=== PATIENT | male | born 1965 | race Caucasian/White ===

== ENCOUNTER → 2017-12-16 07:45 | Outpatient (CLI) | payer BC, SELFPAY ==
[2017-12-16 08:59] LABS: Alanine Aminotransferase 29 U/L (12-78); Albumin Level 3.8 gm/dL (3.4-5.0); Albumin/Globulin Ratio 1.2 (1.1-1.8); Alkaline Phosphatase 89 U/L (46-116); Anion Gap 10.9 mEq/L (5-15); Aspartate Amino Transferase 13 U/L (15-37); Bilirubin,Total 0.2 mg/dL (0.2-1.0); Blood Urea Nitrogen 8 mg/dL (7-18); Calcium 8.7 mg/dL (8.5-10.1); Carbon Dioxide 30 mmol/L (21.0-32.0); Chloride 102 mmol/L (98-107); Chol/HDL Ratio 4.1 (1-3.5); Cholesterol 127 mg/dL (140-200); Creatinine,Serum 1.02 mg/dL (0.70-1.30); Estimated Glomerular Filt Rate 76 ml/min (>60); GFR (African American) 92 ML/MIN (>60); Globulin 3.1 gm/dl (1.3-3.2); Glucose 124 mg/dL (74-106); HDL Cholesterol 31 mg/dL (27-67); LDL Cholesterol 73 mg/dL (0-130); Potassium 3.9 mmoL/L (3.5-5.1); Sodium 139 mmol/L (136-145); Thyroid Stimulating Hormone 4.73 uIU/ml (0.358-3.740); Total Protein,Serum 6.9 gm/dL (6.4-8.2); Triglycerides 114 mg/dL (30-200); VLDL Cholesterol 23 mg/dL (0-40)
== END ==
PROVIDERS: Visit Provider Nurse Practitioner Family
DX: I10 Essential (primary) hypertension (principal); E78.5 Hyperlipidemia, unspecified; E03.9 Hypothyroidism, unspecified
CPT/HCPCS: 36415; 80053; 80061; 84443

== ENCOUNTER → 2019-04-06 09:49 | Outpatient (CLI) | payer BC, SELFPAY ==
[2019-04-06 11:59] LABS: Alanine Aminotransferase 27 U/L (12-78); Albumin Level 3.8 gm/dL (3.4-5.0); Albumin/Globulin Ratio 1.2 (1.1-1.8); Alkaline Phosphatase 94 U/L (46-116); Anion Gap 11.9 mEq/L (5-15); Aspartate Amino Transferase 16 U/L (15-37); Bilirubin,Total 0.5 mg/dL (0.2-1.0); Blood Urea Nitrogen 13 mg/dL (7-18); Calcium 8.7 mg/dL (8.5-10.1); Carbon Dioxide 29 mmol/L (21.0-32.0); Chloride 99 mmol/L (98-107); Chol/HDL Ratio 3.2 (1-3.5); Cholesterol 108 mg/dL (140-200); Creatinine,Serum 1.02 mg/dL (0.70-1.30); Estimated Glomerular Filt Rate 76 ml/min (>60); GFR (African American) 92 ML/MIN (>60); Globulin 3.1 gm/dl (1.3-3.2); Glucose 87 mg/dL (74-106); HDL Cholesterol 34 mg/dL (27-67); LDL Cholesterol 61 mg/dL (0-130); Potassium 3.9 mmoL/L (3.5-5.1); Sodium 136 mmol/L (136-145); Thyroid Stimulating Hormone 1.13 uIU/ml (0.358-3.740); Total Protein,Serum 6.9 gm/dL (6.4-8.2); Triglycerides 67 mg/dL (30-200); VLDL Cholesterol 13 mg/dL (0-40)
[2019-04-06 12:36] LABS: Hemoglobin A1C 5.9 % (0.0-7.0)
== END ==
PROVIDERS: Visit Provider Nurse Practitioner Family
DX: E78.5 Hyperlipidemia, unspecified (principal); E03.9 Hypothyroidism, unspecified; R73.09 Other abnormal glucose; I10 Essential (primary) hypertension
CPT/HCPCS: 36415; 80053; 80061; 83036; 84443

== ENCOUNTER → 2019-09-21 10:17 | Outpatient (CLI) | payer BC, SELFPAY ==
[2019-09-21 10:53] LABS: Hemoglobin A1C 5.4 % (4.0-6.0)
[2019-09-21 11:25] LABS: Alanine Aminotransferase 24 U/L (12-78); Albumin/Globulin Ratio 1.9 (1.1-1.8); Alkaline Phosphatase 56 U/L (38-126); Anion Gap 10.5 mEq/L (5-15); Aspartate Amino Transferase 28 U/L (17-59); Bilirubin,Total 0.7 mg/dl (0.2-1.3); Blood Urea Nitrogen 13 mg/dl (9-20); Calcium 9.6 mg/dl (8.4-10.2); Carbon Dioxide 30 mmol/L (22.0-30.0); Chloride 100 mmol/L (98-107); Chol/HDL Ratio 2.4 (1-3.5); Cholesterol 116 mg/dl (140-200); Estimated Glomerular Filt Rate 100 ml/min (>60); GFR (African American) 121 ML/MIN (>60); Globulin 2.6 g/dL (1.3-3.2); Glucose 94 mg/dl (74-100); HDL Cholesterol 48 mg/dl (40-60); Potassium 4.5 mmoL/L (3.5-5.1); Sodium 136 mmol/L (136-145); Total Protein,Serum 7.6 g/dl (6.3-8.2); Triglycerides 63 mg/dl (30-150); VLDL Cholesterol 13 mg/dL (0-40)
[2019-09-21 11:36] LABS: Direct LDL Cholesterol 71.16 mg/dL (100-129)
[2019-09-21 11:56] LABS: Thyroid Stimulating Hormone 0.75 uIU/mL (0.465-4.68)
== END ==
PROVIDERS: Visit Provider Nurse Practitioner Family
DX: R73.09 Other abnormal glucose (principal); E78.5 Hyperlipidemia, unspecified; I10 Essential (primary) hypertension; E03.9 Hypothyroidism, unspecified
CPT/HCPCS: 36415; 80053; 80061; 83036; 84443

== ENCOUNTER → 2020-02-22 11:32 | Outpatient (CLI) | payer BC, SELFPAY ==
[2020-02-22 12:03] LABS: Basophils # 0.1 K/mm3 (0-0.2); Basophils % 1.4 % (0.1-2.0); Eosinophils # 0.2 K/mm3 (0.0-0.4); Eosinophils % 3.3 % (0.1-12.0); Hematocrit 48.8 % (42.0-52.0); Hemoglobin 16.2 g/dL (14.1-18.0); Lymphocytes # 2.6 K/mm3 (0.7-4.5); Lymphocytes % 34.9 % (10-50); Mean Corpuscular HGB Conc 33.2 g/dL (31.8-35.4); Mean Corpuscular Hemoglobin 34.1 pg (27.0-31.2); Mean Corpuscular Volume 102.6 fl (80-94); Mean Platelet Volume 8.3 fl (7.4-10.4); Monocytes # 0.4 K/mm3 (0.1-1.0); Monocytes % 5.9 % (1.7-9.3); Neutrophils % 54.6 % (37.0-80.0); Platelet Count 245 K/mm3 (142-424); Red Blood Count 4.76 M/mm3 (4.60-6.20); Red Cell Distribution Width 12.7 % (11.5-17.5); White Blood Count 7.4 K/mm3 (4.8-10.8)
[2020-02-22 12:38] LABS: Alanine Aminotransferase 25 U/L (12-78); Albumin Level 4.5 g/dl (3.5-5.0); Albumin/Globulin Ratio 1.7 (1.1-1.8); Alkaline Phosphatase 59 U/L (38-126); Anion Gap 12.4 mEq/L (5-15); Aspartate Amino Transferase 27 U/L (17-59); Bilirubin,Total 0.5 mg/dl (0.2-1.3); Blood Urea Nitrogen 12 mg/dl (9-20); Calcium 9.2 mg/dl (8.4-10.2); Carbon Dioxide 30 mmol/L (22.0-30.0); Chloride 102 mmol/L (98-107); Chol/HDL Ratio 2.7 (1-3.5); Cholesterol 110 mg/dl (140-200); Estimated Glomerular Filt Rate 87 ml/min (>60); GFR (African American) 106 ML/MIN (>60); Globulin 2.6 g/dL (1.3-3.2); Glucose 91 mg/dl (74-100); HDL Cholesterol 41 mg/dl (40-60); Potassium 4.4 mmoL/L (3.5-5.1); Sodium 140 mmol/L (136-145); Total Protein,Serum 7.1 g/dl (6.3-8.2); Triglycerides 64 mg/dl (30-150); VLDL Cholesterol 13 mg/dL (0-40)
[2020-02-22 12:49] LABS: Direct LDL Cholesterol 62.31 mg/dL (100-129)
[2020-02-22 13:09] LABS: Thyroid Stimulating Hormone 0.79 uIU/mL (0.465-4.68)
== END ==
PROVIDERS: Visit Provider Nurse Practitioner Family
DX: I25.10 Atherosclerotic heart disease of native coronary artery without angina pectoris (principal); R73.09 Other abnormal glucose; E03.9 Hypothyroidism, unspecified; Z72.0 Tobacco use
CPT/HCPCS: 36415; 80053; 80061; 83036; 84443; 85025

== ENCOUNTER → 2020-03-08 07:46 | Outpatient (CLI) | payer BC, SELFPAY ==
--- NOTE | 2020-03-08 07:50 | CT_ITS ---
PROCEDURE: CT LUNG SCREENING CLINICAL INDICATION: H/O NICOTINE DEPENDENCE Current smoker 40 pack year smoking history COMPARISON: No exams were available for comparison TECHNIQUE: The exam was performed on a GE Light Speed [address] scanner using 2.90 mGy CTDI. A low dose helical CT CHEST was performed on a multi-detector scanner. All CT scans at the facility use one or more dose reduction, viz: automated exposure control, ma/kV adjustment per patient size (including targeted exams where dose is matched to indication, i.e. head), or iterative reconstruction technique. The LDCT was performed in a facility that meets the criteria for the screening program. Data regarding this exam was submitted to ACR which is an approved registry. The order for this exam indicates that it came as a result of a lung cancer screening counseling shard decision-making visit that included all the elements required of such a visit including smoking cessation. The radiologist interpreting this exam meets the [facility] criteria for the LDCT lung cancer screening program. The exam is reported using the Lung-RADS classification scale and reported to the ACR registry. NOTE: This study was performed for the specific purposes of lung cancer screening and is not an alternative to diagnostic chest CT. RADIATION DOSE: CTDI vol(CT dose Index-volume) = 2.90mG DLP (Dose Length Product) = 98.99 mGcm FINDINGS: Changes of COPD atelectatic or scarring noted in the right lower lobe. 7 mm nodule is present in the right lung base image 46 series 4. 7 mm ground-glass nodule is present in the left lung base. OTHER FINDINGS: Prior CABG. Extensive coronary artery calcification degenerative changes thoracic spine IMPRESSION: Lung-RADS Category 3 Probably Benign Follow-up: [address] Chest without and with contrast. Dictated by: Oc Macedo MD 03/13/2020 08:58 Oc Macedo MD in [place] 03/13/2020 08:58
== END ==
PROVIDERS: PCP Internal Medicine Adolescent Medicine; Visit Provider Nurse Practitioner Family
DX: Z87.891 Personal history of nicotine dependence (principal); Z12.2 Encounter for screening for malignant neoplasm of respiratory organs

== ENCOUNTER → 2021-03-23 11:14 | Outpatient (CLI) | payer BC, SELFPAY ==
[2021-03-23 12:25] LABS: Alanine Aminotransferase 31 U/L (12-78); Albumin Level 4.5 g/dl (3.5-5.0); Albumin/Globulin Ratio 1.8 (1.1-1.8); Alkaline Phosphatase 61 U/L (38-126); Anion Gap 12.4 mEq/L (5-15); Aspartate Amino Transferase 26 U/L (17-59); Bilirubin,Total 0.5 mg/dl (0.2-1.3); Blood Urea Nitrogen 15 mg/dl (9-20); Calcium 9.2 mg/dl (8.4-10.2); Carbon Dioxide 27 mmol/L (22.0-30.0); Chloride 102 mmol/L (98-107); Chol/HDL Ratio 3.4 (1-3.5); Cholesterol 124 mg/dl (140-200); Estimated Glomerular Filt Rate 87 ml/min (>60); GFR (African American) 105 ML/MIN (>60); Globulin 2.5 g/dL (1.3-3.2); Glucose 89 mg/dl (74-100); HDL Cholesterol 36 mg/dl (40-60); Potassium 4.4 mmoL/L (3.5-5.1); Sodium 137 mmol/L (136-145); Triglycerides 77 mg/dl (30-150); VLDL Cholesterol 15 mg/dL (0-40)
[2021-03-23 12:36] LABS: Direct LDL Cholesterol 75.44 mg/dL (100-129)
[2021-03-23 12:56] LABS: Thyroid Stimulating Hormone 5.57 uIU/mL (0.465-4.68)
== END ==
PROVIDERS: Visit Provider Nurse Practitioner Family
DX: I10 Essential (primary) hypertension (principal); E78.5 Hyperlipidemia, unspecified; E03.9 Hypothyroidism, unspecified; R73.03 Prediabetes
CPT/HCPCS: 36415; 80053; 80061; 83036; 84443

== ENCOUNTER → 2021-05-09 14:53 | Outpatient (CLI) | payer BC, SELFPAY ==
--- NOTE | 2021-05-09 14:55 | CT_ITS ---
PROCEDURE: CT LUNG SCREENING CLINICAL INDICATION: HX OF NICOTINE DEPENDENCE COMPARISON: CT CT LUNG SCREENING from 03/08/2020 TECHNIQUE: The exam was performed on a GE Light Speed [address] scanner using 2.90 mGy CTDI. A low dose helical CT CHEST was performed on a multi-detector scanner. All CT scans at the facility use one or more dose reduction, viz: automated exposure control, ma/kV adjustment per patient size (including targeted exams where dose is matched to indication, i.e. head), or iterative reconstruction technique. The LDCT was performed in a facility that meets the criteria for the screening program. Data regarding this exam was submitted to ACR which is an approved registry. The order for this exam indicates that it came as a result of a lung cancer screening counseling shard decision-making visit that included all the elements required of such a visit including smoking cessation. The radiologist interpreting this exam meets the CMS criteria for the LDCT lung cancer screening program. The exam is reported using the Lung-RADS classification scale and reported to the ACR registry. NOTE: This study was performed for the specific purposes of lung cancer screening and is not an alternative to diagnostic chest CT. RADIATION DOSE: CTDI vol(CT dose Index-volume) = 2.90mG DLP (Dose Length Product) = 90.12 mGcm FINDINGS: COPD changes. Scattered areas of scarring. Old granulomatous disease. Fissural nodule in the right lung base is unchanged at 8 mm. There is faint ground-glass attenuation in the lingula inferiorly. No change 7 mm ground-glass nodule left lung base. No suspicious nodules identified. Mild atelectatic change right posterior costophrenic sulcus OTHER FINDINGS: Prior CABG. Extensive coronary artery calcification. Degenerative changes thoracic spine with kyphosis IMPRESSION: Lung-RADS Category 2 Benign Appearance or Behavior Follow-up: Continue annual screening with LDCT in 12 months Faint infiltrate noted in the lingula Dictated by: Oc Macedo MD 05/12/2021 12:30 Oc Macedo MD in [place] 05/12/2021 12:30
== END ==
PROVIDERS: PCP Internal Medicine Adolescent Medicine; Visit Provider Nurse Practitioner Family
DX: Z87.891 Personal history of nicotine dependence (principal); Z12.2 Encounter for screening for malignant neoplasm of respiratory organs
CPT/HCPCS: 71271

== ENCOUNTER 2022-02-19 10:50 | Emergency (ER) | payer OTHER, BC, SELFPAY ==
[2022-02-19 10:52] VITALS: BP 158/83; PULSE 60; RESP 20; TEMP 36.6; O2SAT 98; BMI 35.2
--- NOTE | 2022-02-19 10:54 | HMH.EDGENADL ---
Discharge Plan Disposition Patient Disposition: Home, Self-Care Condition: Good Prescriptions Prescriptions: New ibuprofen 600 mg tablet 600 mg PO Q8H PRN (Reason: pain) Qty: 30 0RF hydrocodone-acetaminophen 5-325 mg tablet 1 tab PO Q6H PRN (Reason: pain (scale score 4-6)) Qty: 12 0RF Referrals Follow up/Referrals: Filemon Webster MD [Primary Care Provider] - See instructions Sunita Garces DPM [Staff Physician] - See instructions Activity Restrictions/Add. Instructions Additional Instructions/Restrictions: You have been evaluated for crush injury to the right foot and ankle. Please keep Serafin wrap in place. Keep your leg elevated. Take anti-inflammatory medication like 600 mg ibuprofen. [place] as needed for severe pain. 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 Return to the emergency department at once for any new or worsening symptoms. Clinical Impressions Clinical Impression: Crush injury of right foot Instructions Patient Instructions: DI for Ankle Sprain, DI for Contusion Discharge ED Provider: Noris Eduardo General Adult HPI General Chief complaint: Extremity Injury, Lower Stated complaint: Ran over by forklift, RT foot pain@work 02/16 1140 Time Seen by Provider: 02/19/22 10:54 History of Present Illness HPI narrative: 57-year-old male presenting to the emergency department with injury to the right foot. Incident happened on Saturday, 3 days ago. He was at work, wearing tennis shoes. His foot was run over by a forklift. He had immediate pain near the ankle. Described as sharp. He was evaluated at the hospital in [place] where he was told x-rays were negative. Was discharged home. He has not taken any medication for pain or inflammation. He is wearing a slipper. Does not have the foot or ankle wrapped. Says his pain is no better than it was the evening accident happened. No numbness, weakness, tingling in his toes. No pain in the [place] or knee. No breaks in the skin. No history of diabetes Related Data Previous Rx's Medication Instructions Recorded hydrocodone 5 mg-acetaminophen 325 1 tab PO Q6H PRN pain (scale score 02/19/22 mg tablet 4-6) #12 tabs ibuprofen 600 mg tablet 600 mg PO Q8H PRN pain #30 tabs 02/19/22 Allergies Allergy/AdvReac Type Severity Reaction Status Date / Time No Known Allergies Allergy Verified 02/19/22 11:05 [facility] Medical History (Updated 02/19/22 @ 11:08 by Chasity Mak RN) Elevated cholesterol Hypothyroid Surgical History (Updated 02/19/22 @ 11:08 by Chasity Mak RN) S/P CABG x 2 Social History (Updated 02/19/22 @ 11:09 by Chasity Mak RN) Smoking Status: Current every day smoker alcohol intake: never current occupational status: employed Travel in the last 8 weeks: None ROS Obtained: Yes All systems reviewed & no additional complaints except as documented Constitutional Constitutional: Denies chills and Denies fever(s) Cardiovascular Cardiovascular: Denies chest pain, Denies dyspnea, Reports leg edema (Right ankle) and Denies leg ulcers Respiratory Respiratory: Denies cough and Denies dyspnea Gastrointestinal Gastrointestingal: Denies nausea or vomiting Musculoskeletal Musculoskeletal: Reports abnormal gait (Limping. Pain while bearing weight on the right ankle.), Reports arthralgias, Reports joint swelling (Right ankle) and Denies numbness Integumentary/Breasts Skin/Breast: Denies redness, Denies rash and Reports other (No bruising) Neurologic Neurologic: Reports abnormal gait (Limping. Pain while bearing weight on the right ankle.) and Denies numbness Hematologic/Lymphatic Henatologic/Lymphatic: Denies easy bleeding and Denies easy bruising Physical Exam General General appearance: alert and in no apparent distress Head Head exam: atraumatic and normocephalic Respiratory Respiratory exam: Present normal lung sounds bilaterally; Absent respiratory distress or wheezes Cardiovascular Ca
--- NOTE | 2022-02-19 10:55 | PC.NURSE ---
ED MD AT BEDSIDE FOR EVALUATION
--- NOTE | 2022-02-19 10:57 | XR_ITS ---
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 FINDINGS: RIGHT FOOT 3 views were obtained. There is no acute fracture or dislocation. The joint spaces are intact. There is forefoot soft tissue swelling. IMPRESSION: Soft tissue swelling with no acute bony abnormality. Reviewed, Interpreted and Dictated by Jose D Loza III, MD Transcribed by Monse Benjamin Authenticated and [facility]
[2022-02-19 11:00] VITALS: BP 158/83
--- NOTE | 2022-02-19 11:11 | PC.NURSE ---
XR AT BEDSIDE
[2022-02-19 11:30] VITALS: BP 150/84; PULSE 58; RESP 16; O2SAT 98
[2022-02-19 12:00] VITALS: BP 155/84; PULSE 51; RESP 18; O2SAT 100
--- NOTE | 2022-02-19 12:14 | PC.NURSE ---
ED MD AT BEDSIDE TO DISCUSS POC
[2022-02-19 12:31] VITALS: BP 150/79; PULSE 50; RESP 16; O2SAT 100
[2022-02-19 12:36] VITALS: BP 150/79; PULSE 60; RESP 18; TEMP 36.7; O2SAT 98
== END 2022-02-19 12:39 | disposition home or self-care (01) ==
PROVIDERS: Emergency Provider Emergency Medicine; PCP Internal Medicine Adolescent Medicine
DX: S93.402A Sprain of unspecified ligament of left ankle, initial encounter (principal); S99.922A Unspecified injury of left foot, initial encounter; E78.00 Pure hypercholesterolemia, unspecified; E03.9 Hypothyroidism, unspecified; F17.210 Nicotine dependence, cigarettes, uncomplicated; Z79.1 Long term (current) use of non-steroidal anti-inflammatories (NSAID); Z79.899 Other long term (current) drug therapy; Z95.1 Presence of aortocoronary bypass graft; V83 Occupant of special vehicle mainly used on industrial premises injured in transport accident
CPT/HCPCS: 73620; 99283

== ENCOUNTER → 2023-02-07 15:13 | Outpatient (CLI) | payer BC, SELFPAY ==
--- NOTE | 2023-02-07 15:16 | CT_ITS ---
FINAL REPORT TECHNIQUE: Thin section axial images were obtained through the lungs using a low-dose technique per lung cancer screening protocol. Reconstruction images were obtained using the axial data. Exam was performed using dose reduction technique. CLINICAL HISTORY: HISTORY OF TOBACCO USE smoker x 1/2 PPD x 40 yrs CAD COMPARISON: 03/08/2020 FINDINGS: CTDLvol: 2.90 DLP: 104.46 Current smoker 40 pack year history Lungs: There is new, subpleural groundglass opacity in the left upper lobe favored to be infectious or inflammatory. There is a stable 5 mm nodule along the left major fissure on series 4 image 38. This likely represents an intrafissural lymph node. There is evidence of prior granulomatous disease. Previously seen noncalcified right lower lobe nodule was not seen on today's exam. There are subpleural interstitial changes in the right midlung which are stable. The lungs are otherwise clear. Lymph nodes: No thoracic lymphadenopathy. Mediastinum: Heart size is normal. There are prominent coronary artery calcifications. Pleura/pericardium: No pleural or pericardial effusion. Other: No acute abnormality in the upper abdomen. IMPRESSION: New groundglass opacities in the left upper lobe favored to be infectious or inflammatory. Lung RADS: 0 Recommendation: No consider 3-month follow-up chest CT. Reviewed, Interpreted and Dictated by Maye Kaplan MD Transcribed by Monse Benjamin Authenticated and [facility]
== END ==
PROVIDERS: PCP Internal Medicine Adolescent Medicine; Visit Provider Nurse Practitioner Family
DX: Z87.891 Personal history of nicotine dependence (principal)
CPT/HCPCS: 71271

== ENCOUNTER 2023-05-22 09:13 | Outpatient (CLI) | payer BC, SELFPAY ==
--- NOTE | 2023-05-22 09:18 | CT_ITS ---
FINAL REPORT TECHNIQUE: Axial images were obtained from the lung apex to the mid abdomen by computed tomography. Coronal reformatted images were obtained. This study was performed with techniques to keep radiation doses as low as reasonably achievable, (ALARA). Individualized dose reduction techniques using automated exposure control or adjustment of mA and/or kV according to the patient''s size were employed. CLINICAL HISTORY: INTERSTITIAL LUNG DISEASE COMPARISON: CT low-dose 02/07/2023 FINDINGS: There is no axillary adenopathy. There is no hilar or mediastinal adenopathy. Prior median sternotomy. Heart size is normal. There is no pericardial or pleural effusion. There is mild emphysema. Persistent groundglass opacities in the left upper lobe are stable. Mild worsening groundglass opacity in the anterior right upper lobe may represent alveolitis or edema. Areas of scarring in the right lung are stable. There is a calcified granuloma in the right lower lobe. Limited images of the upper abdomen demonstrate small stones or sludge in the gallbladder. IMPRESSION: Anterior right upper lobe worsening groundglass opacities may represent alveolitis or edema. Reviewed, Interpreted and Dictated by Joes D Loza III, MD Transcribed by Chyna Angela Authenticated and [facility]
== END 2023-05-22 23:59 ==
LOC: RAD 09:14
PROVIDERS: PCP Internal Medicine Adolescent Medicine; Visit Provider Nurse Practitioner Family
DX: J84.9 Interstitial pulmonary disease, unspecified (principal); R91.8 Other nonspecific abnormal finding of lung field
CPT/HCPCS: 71250

== ENCOUNTER 2024-09-04 10:13 | Outpatient (CLI) | payer BC, SELFPAY ==
--- NOTE | 2024-09-04 | CT_ITS ---
FINAL REPORT TECHNIQUE: Thin section axial images were obtained from the lung apices to the upper abdomen by computed tomography. Reformatted images were obtained and reviewed. This study was performed with techniques to keep radiation doses al low as reasonably achievable (ALARA). Individualized dose reduction techniques using automated exposure control or adjustment of mA and/or kV according to the patient's size were employed. CLINICAL HISTORY: SCREENING current smoker 1/2ppd x30 years COMPARISON: 05/22/2023 FINDINGS: CHEST CT LOW DOSE 58-year-old male, current smoker, [id number] history CTDI vol (mGy): 2.90 DLP (mGy-cm): 96.38 There is no axillary adenopathy. There is no mediastinal or hilar mass or adenopathy. The heart is normal in size. There is no pericardial or pleural effusion. Lung window images demonstrate coarse interstitial opacities in the anterior lingula, anterior right middle lobe, and right lower lobe, which have progressed somewhat since the prior CT of 05/22/2023. The appearance is worrisome for progressive pulmonary fibrosis. Limited images of the upper abdomen are unremarkable. IMPRESSION: Lung-RADS category 1S, the S designation for pulmonary fibrosis. Recommend 12 month follow up low dose chest CT. Reviewed, Interpreted and Dictated by Isaiah Clarke MD Transcribed by Miladys Staley Authenticated and . [facility]
--- OUTSIDE RECORDS SUMMARY | 2024-09-04 10:15 | XMS_ITS | Clinical Summary ---
Author Organization [facility] , [facility] Address [address] [place] [address] Phone Care Team Providers Care Direct Marketing Representative Name Role Phone LIZ CORTEZ MD Primary Care Provider [phone] Jerrica GUPTA, Geo Heck Unavailable [phone] Reason for Visit and Chief Complaint The Chief Complaint is: Right foot pain Problems Includes: Problems addressed during this encounter and other active Problems All Visits Onset Date Resolved Date Provider Condition S tatus Pain in the Right Foot 02/21/2022 Geo powell DPEzequiel Active Last Documented On 2 9:10AM ; [facility] Plan of Treatment This patient had a crush injury on or about 02/16/2022. He had metatarsal fractures 2 and 3 which appear to be healing very nicely clinically and radiographically. He does have persistent symptoms of pain in his foot. I have been concerned all along and then more so concern now for the development of CRPS with his crush injury. He has been on gabapentin. We have had him in physical therapy. I do think we need to get this evaluated. My primary choice would be Dr. Cj Martinez however if he is not available then I would consider Dr. Surendra Boateng for evaluation and management of CRPS if that is present. This patient continues to rate his pain on a VAS pain scale up to 8 out of 10 without examination or palpation just simply sitting in my office today. I have reviewed all of this with the correctional casework specialist. At a separate meeting with the correctional casework specialist at Worker's Compensation's request and did review my expectations and request. We also requested approval for a custom orthotic which is standard of care for this type of crush injury to the midfoot. I do think he will need this long-term. I explained all this to the patient and his . They are understanding of this. We will clear him to drive a vehicle as long as he feels safe to do so. I think medically that would be okay. We will keep him on a sedentary work restriction. I will see him back in 6 weeks for follow-up with an x-ray of the foot on arrival. We will need to reschedule that appointment if he has not had an evaluation by pain management physician prior to that date as it will then serve no purpose for me to continue to see him until we have that answer as to whether or not CRPS is present. - Last Documented On 05/15/2022 11:53AM ; [facility] Referrals To Diagnosis Consult for Pain Management Note: Pain mgmt referral. Dr Magdalena Martinez (possible CRPS) or Dr. FEDERICO Boateng Last Documented On 3 8:30AM ; [facility] Assessments Includes: Assessments from this encounter Findings Crush injury right foot, work-related, date of injury 02/16/2022. - Last Documented On 05/15/2022 11:53AM ; [facility] Medical Equipment - Implanted Devices Includes: Current Devices No Medical Equipment Recorded Medications Includes: Medications discussed during this encounter and other current Medications Current Medications (continue as prescribed) [place] 5-325 MG Oral Tablet 01/25/2023 Provider: Diagnosis: Last Documented On 3 10:16AM By Princess Alberto ; [facility] Famotidine 40 MG Oral Tablet 09/04/2022 Provider: Ann-Marie Hawthorne APRN Diagnosis: Last Documented On 3 10:10AM By Ashley Ramírez ; [facility] Gabapentin 300 MG Oral Capsule 08/27/2022 Provider: Diagnosis: Last Documented On 3 10:10AM By Ashley Ramírez ; [facility] Amitriptyline HCl 50 MG Oral Tablet 08/24/2022 Provi shaggy: Diagnosis: Last Documented On 3 10:10AM By Ashley Ramírez ; [facility] Ibuprofen 600 MG Oral Tablet 02/19/2022 Provider: Diagnosis: Last Documented On 2 9:22AM By Osiris Cummings ; [facility] HYDROcodone-Acetaminophen 5-325 MG Oral Tablet 022 Provider: Diagnosis: Last Documented On 2 9:22AM By Osiris Cummings ; [facility] Losartan Potassium 100 MG Oral Tablet 01/24/2022 Pro vider: LIZ CORTEZ MD Diagnosis: Last Documented On 9:22AM By Osiris Cummings ; [facility] Levothyroxine Sodium 112 MCG Oral Tablet 01/24/2022 Provider: LIZ CORTEZ MD Diagnosis: Last Documented On 2 9:22AM By Osiris Cummings ; [facility] Escitalopram Oxalate 20 MG O ral Tablet 01/24/2022 Provider: Ann-Marie wells NEONATAL ICU COORDINATOR Diagnosis: Last Documented On 9:22AM By Osiris Cummings ; [facility] Carvedilol 6.25 MG Oral Tablet 01/24/2022 Provider: LIZ CORTEZ MD Diagnosis: Last Documented On 2 9:22AM By Osiris Cummings ; [facility] Atorvastatin Calcium 40 MG Oral Tablet 01/24/2022 Pr ovider: LIZ CORTEZ MD Diagnosis: Last Documented On 2 9:22AM By Osiris Cummings ; [facility] diazePAM 10 MG Oral Tablet 01/01/2022 Provider: Maria R Hawthorne APRN Diagnosis: Last Documented On 9:22AM By Osiris Cummings ; [facility] Past Medications on file Gabapentin 100 MG Oral Capsule 04/02/2022 - 05/17/2022 Provider: Geo Becerril DPM Diagnosis: 1 every bedtime Last Documented On 2 3:16PM By Dr. Becerril ; [facility] Gabapentin 100 MG Oral Capsule 03/02/2022 - 04/01/2022 Provider: Geo Becerril DPM Diagnosis: 1 every bedtime Last Documented On 2 2:16PM By Dr. Becerril ; [facility] Medications Administered Includes: Administered Medications from this encounter No Administered Medications Recorded Vital Signs Includes: Vital Signs from this encounter Vital Name 05/15/2022 11:02A Blood Pressure Sitting (mmHg) 135/88 Pulse Rate-Sitting (bpm) 67 Height (in) 67 Weight (lb) 222 Body Mass Index 34.8 Body Surface Area 2.1 Note: sjs Last Documented: On 05/15/2022 11:02A M ; [facility] Results Includes: Results discussed during this encounter No Results Recorded For Specified Dates History of Present Illness Includes: History of Present Illness from this encounter LIZETT SHARMA is a 57 year old male. - Allergy list reviewed - Problem list reviewed - Medication list reviewed - Previous history of new onset pain 02/16/2022 Work Injury Forklift hit pt's right foot This is a 57-year-old male who is seen for evaluation of the foot ankle and lower leg on the right side. He had a crush injury to the right foot 3 months ago. His date of injury was on or about 02/16/2022. He had metatarsal fractures 2 and 3 proximally which were distal to the joint complex and have been managed nonoperatively. The concern all along has been the soft tissue crush injury. He has been on 100 mg of gabapentin and that has helped to some extent but he rates his pain still up to 8 out of 10 even with nonweightbearing activities. He reports a diffuse aching type pain throughout the entire foot. He is here with his today. He did ambulate in the office in a regular pair of tennis shoes with an antalgic gait pattern. He has been off of work he has not been driving. Social History Description Last Updated Caffeine use 02/21/2022 Last Documented On 3 10:50AM ; [facility] Exercising regularly 02/21/2022 Last Documented On 3 10:50AM ; [facility] Yes, current smoker. 02/21/2022 Last Documented On 3 10:50AM ; [facility] Tobacco non-user 02/21/2022 Last Documented On 3 10:50AM ; [facility] No recent change in diet 02/21/2022 Last Documented On 3 10:50AM ; [facility] Not using alcohol 02/21/2022 Last Documented On 3 10:50AM ; [facility] Not using drugs 02/21/2022 Last Documented On 3 10:50AM ; [facility] Smoking Status Unknown Procedures and Surgical History Includes: Procedures from this encounter Procedures Code Diagnosis Performing Provider Service L ocation Service Date use of tobacco assessment performed 1000F Last Documented On 3 10:50AM ; [facility] no influenza immunization patient refuse d Last Documented On 3 10:50AM ; [facility] an X-ray was performed 05/15/2022 O [id number] Last Documented On 3 10:52AM ; [facility] an MRI was performed 02/28/2022 E [id number] Last Documented On 3 10:50AM ; [facility] Surgical History Last Updated History of heart surgery 02/21/2022 Last Documented On 3 10:50AM ; [facility] Medical History Includes: Medical History addressed during this encounter Description Last Updated History of depression 02/21/2022 Last Documented On 3 10:50AM ; [facility] History of History of Heart Attack / Str isela 02/21/2022 Last Documented On 3 10:50AM ; [facility] History of Hypertension 02/21/2022 Last Documented On 3 10:50AM ; [facility] History of Thyroid Disease 02/21/2022 Last Documented On 3 10:50AM ; [facility] No recent immunization for flu 2 Last Documented On 3 10:50AM ; [facility] No recent immunization for pneumococcal pneumonia 02/21/2022 Last Documented On 3 10:50AM ; [facility] Family History Includes: Family History addressed during this encounter Description Last Updated Family history of heart disease 02/22/20 22 Last Documented On 3 10:50AM ; [facility] Review of Systems Includes: Review of Systems from this encounter Systemic: Not feeling tired, no recent weight loss, and no recent weight gain. Head: No headache and no sinus pain. Eyes: No vision problems and no Cataracts. Glasses/Contacts. No Glaucoma. Otolaryngeal: Hearing loss. No tinnitus. Cardiovascular: No chest pain or discomfort, no palpitations, no Hypertension, and no High Cholesterol. Pulmonary: No daytime asthma symptoms and no chronic cough. No wheezing. Gastrointestinal: Heartburn. No abdominal pain. No Indigestion. Acid Reflux. No Peptic Ulcer, no GI Stomach Bleed, and no Ulcers. Endocrine: No hot flashes, no muscle weakness, no Diabetes, no Hypothyroid, and no Hyperthyroid. Hematologic: No easy bleeding, no tendency for easy bruising, and no Anemia. Musculoskeletal: No Arthritis and no lower back pain. No soft tissue swelling and no localized joint pain. Neurological: No dizziness, no convulsions, and no numbness. Psychological: Anxiety. No emotional lability, no depression, and no insomnia. Not crying for no reason. Skin: No dry skin. No Ulcers, no Scars, and no rash. Allergic and Immunologic: No complaint of seasonal allergic reaction. Mental Status Includes: Mental Status from this encounter Description Anxiety Functional Status Includes: Functional Status from this encounter No Functional Status Recorded Physical Exam Includes: Physical Exam from this encounter Allergies Includes: Active Allergies No Known Allergies Encounters Encounter Provider Location Date Check-In Time Check-Out Time Diagnosis FOLLOW UP/EST Geo Becerril DPM [facility] 05/15/19 23 9:42AM 11:46AM Insurance Includes: Active Insurance Policies Plan Name Member ID Group # Subscriber Relationship Effect sukhdev Dates 1 - PMA [id number] NOEMI SHARMA Self 022 - Unknown Clinical Notes Includes: Clinical Notes from this encounter * Progress note Date Encounter Last Documented by 05/15/2022 FOLLOW UP/EST Last documented on 05/15/2022; 11:53 AM, Geo Becerril DPM; [facility] Active Problems & Conditions - Pain in the Right Foot Chief Complaint The Chief Complaint is: Right foot pain. Referred Here Referred by . History of Present Illness NOEMI SHARMA is a 57 year old male. - Allergy list reviewed - Problem list reviewed - Medication list reviewed - Previous history of new onset pain 02/16/2022 Work Injury Forklift hit pt's right foot This is a 57-year-old male who is seen for evaluation of the foot ankle and lower leg on the right side. He had a crush injury to the right foot 3 months ago. His date of injury was on or about 02/16/2022. He had metatarsal fractures 2 and 3 proximally which were distal to the joint complex and have been managed nonoperatively. The concern all along has been the soft tissue crush injury. He has been on 100 mg of gabapentin and that has helped to some extent but he rates his pain still up to 8 out of 10 even with nonweightbearing activities. He reports a diffuse aching type pain throughout the entire foot. He is here with his today. He did ambulate in the office in a regular pair of tennis shoes with an antalgic gait pattern. He has been off of work he has not been driving. Current Medication - Atorvastatin Calcium 40 MG Oral Tablet 30 days, 0 refills - Carvedilol 6.25 MG Oral Tablet 30 days, 0 refills - diazePAM 10 MG Oral Tablet 30 days, 0 refills - Escitalopram Oxalate 20 MG Oral Tablet 30 days, 0 refills - Gabapentin 100 MG Oral Capsule 1 every bedtime, 45 days, 0 refills - HYDROcodone-Acetaminophen 5-325 MG Oral Tablet 3 days, 0 refills - Ibuprofen 600 MG Oral Tablet 10 days, 0 refills - Levothyroxine Sodium 112 MCG Oral Tablet 30 days, 0 refills - Losartan Potassium 100 MG Oral Tablet 30 days, 0 refills Past Medical/Surgical History Reported: Immunization History: No recent immunization for flu and not for pneumococcal pneumonia. Diagnoses: Thyroid Disease Hypertension History of Heart Attack / Stroke. Depression Surgical: - Heart surgery Social History Yes, current smoker. Current diet: No recent change in diet. Caffeine use: Caffeine use. Tobacco use: Tobacco non-user. Alcohol: Not using alcohol. Drug Use: Not using drugs. Habits: Exercising regularly. Allergies - No Known Allergies Family History Heart disease Review Of Systems Systemic: Not feeling tired, no recent weight loss, and no recent weight gain. Head: No headache and no sinus pain. Eyes: No vision problems and no Cataracts. Glasses/Contacts. No Glaucoma. Otolaryngeal: Hearing loss. No tinnitus. Cardiovascular: No chest pain or discomfort, no palpitations, no Hypertension, and no High Cholesterol. Pulmonary: No daytime asthma symptoms and no chronic cough. No wheezing. Gastrointestinal: Heartburn. No abdominal pain. No Indigestion. Acid Reflux. No Peptic Ulcer, no GI Stomach Bleed, and no Ulcers. Endocrine: No hot flashes, no muscle weakness, no Diabetes, no Hypothyroid, and no Hyperthyroid. Hematologic: No easy bleeding, no tendency for easy bruising, and no Anemia. Musculoskeletal: No Arthritis and no lower back pain. No soft tissue swelling and no localized joint pain. Neurological: No dizziness, no convulsions, and no numbness. Psychological: Anxiety. No emotional lability, no depression, and no insomnia. Not crying for no reason. Skin: No dry skin. No Ulcers, no Scars, and no rash. Allergic and Immunologic: No complaint of seasonal allergic reaction. Physical Findings - Vitals taken 05/15/2022 11:02 am s BP-Sitting 135/88 mmHg 100 - 120/60 - 80 Pulse Rate-Sitting 67 bpm 50 - 100 Height 67 in 60 - 80 Weight 222 lbs 125 - 225 Body Mass Index 34.8 kg/m2 Body Surface Area 2.1 m2 This is a well-developed well-nourished 57-year-old male who is seen for evaluation of the foot ankle and lower leg on the right side. He has subtle edema to the right foot diffuse in nature. He has reproducible tenderness over the tarsometatarsal joint complex as well as diffusely throughout the foot. This is generally improved. The edema is generally improved. There were no obvious discolorations involving the foot ankle or lower leg. There is no calf edema or palpable cord in the calf. No clinical evidence of DVT. It is unclear whether he has a true picture of allodynia but nonetheless he does have symptoms of continued pain 3 months after this crush injury raising suspicion for the development of CRPS or variant of that. He can flex and extend the toes. No other acutely abnormal finding is noted on today's exam Tests Three-view x-rays of the right foot indicate good healing of the proximal second and third metatarsal fractures. These fractures are transversely oriented and distal to the joint complex. There is a little lucency particularly on the oblique view through the neck of the second, third, fourth, fifth metatarsals of uncertain significance without evidence of fracture in those locations on previous imaging or advanced imaging. Infracalcaneal and retrocalcaneal spurring is noted. No other acutely abnormal finding is noted Assessment Crush injury right foot, work-related, date of injury 02/16/2022. Previous Tests Imaging: X-Ray: An X-ray was performed 05/15/2022 [facility]. MRI Scan: An MRI was performed 02/28/2022 [facility]. Plan StartCited - Other Referral/Pain Management: Consult for Pain Management Instructions: Pain mgmt referral. Dr. Martinez (possible CRPS) or Dr. FEDERICO Boateng EndCited This patient had a crush injury on or about 02/16/2022. He had metatarsal fractures 2 and 3 which appear to be healing very nicely clinically and radiographically. He does have persistent symptoms of pain in his foot. I have been concerned all along and then more so concern now for the development of CRPS with his crush injury. He has been on gabapentin. We have had him in physical therapy. I do think we need to get this evaluated. My primary choice would be Dr. Cj Martinez however if he is not available then I would consider Dr. Surendra Boateng for evaluation and management of CRPS if that is present. This patient continues to rate his pain on a VAS pain scale up to 8 out of 10 without examination or palpation just simply sitting in my office today. I have reviewed all of this with the correctional casework specialist. At a separate meeting with the correctional casework specialist at Worker's Compensation's request and did review my expectations and request. We also requested approval for a custom orthotic which is standard of care for this type of crush injury to the midfoot. I do think he will need this long-term. I explained all this to the patient and his . They are understanding of this. We will clear him to drive a vehicle as long as he feels safe to do so. I think medically that would be okay. We will keep him on a sedentary work restriction. I will see him back in 6 weeks for follow-up with an x-ray of the foot on arrival. We will need to reschedule that appointment if he has not had an evaluation by pain management physician prior to that date as it will then serve no purpose for me to continue to see him until we have that answer as to whether or not CRPS is present. Practice Management Use of tobacco assessment performed; No influenza immunization patient refused. Care Team - LIZ CORTEZ MD - LITERACY TEACHER Notes This dictation was done with voice recognition software and may contain errors and omissions.
--- OUTSIDE RECORDS SUMMARY | 2024-09-04 10:15 | XMS_ITS | Clinical Summary ---
Author Organization [facility] Address [address] [place] [address] Phone Care Team Providers Care Licensing Officer Name Role Phone LIZ CORTEZ MD Primary Care Provider [phone] Jerrica GUPTA, Geo Heck Unavailable Unavailable Reason for Visit and Chief Complaint Orthotics Footmaxx Problems Includes: Problems addressed during this encounter and other active Problems All Visits Onset Date Resolved Date Provider Condition S tatus Pain in the Right Foot 02/21/2022 Geo powell DPEzequiel Active Last Documented On 2 9:10AM ; [facility] Plan of Treatment No Plan of Treatment Recorded Assessments Includes: Assessments from this encounter No Assessments Recorded Medical Equipment - Implanted Devices Includes: Current Devices No Medical Equipment Recorded Medications Includes: Medications discussed during this encounter and other current Medications Current Medications (continue as prescribed) [place] 5-325 MG Oral Tablet 01/25/2023 Provider: Diagnosis: Last Documented On 3 10:16AM By Princess Alberto ; [facility] Famotidine 40 MG Oral Tablet 09/04/2022 Provider: Ann-Marie Hawthorne APRN Diagnosis: Last Documented On 3 10:10AM By Ashley Ramírez ; [facility] Gabapentin 300 MG Oral Capsule 08/27/2022 Provider: Diagnosis: Last Documented On 3 10:10AM By Ashley Ramírez ; [facility] Amitriptyline HCl 50 MG Oral Tablet 08/24/2022 Provi shaggy: Diagnosis: Last Documented On 3 10:10AM By Ashley Ramírez ; [facility] Ibuprofen 600 MG Oral Tablet 02/19/2022 Provider: Diagnosis: Last Documented On 9:22AM By Osiris Cummings ; [facility] HYDROcodone-Acetaminophen 5-325 MG Oral Tablet 022 Provider: Diagnosis: Last Documented On 2 9:22AM By Osiris Cummings ; [facility] Losartan Potassium 100 MG Oral Tablet 01/24/2022 Pro vider: LIZ CORTEZ MD Diagnosis: Last Documented On 9:22AM By Osiris Cummings ; [facility] Levothyroxine Sodium 112 MCG Oral Tablet 01/24/2022 Provider: LIZ CORTEZ MD Diagnosis: Last Documented On 9:22AM By Osiris Cummings ; [facility] Escitalopram Oxalate 20 MG O ral Tablet 01/24/2022 Provider: Ann-Marie wells APRN Diagnosis: Last Documented On 9:22AM By Osiris Cummings ; [facility] Carvedilol 6.25 MG Oral Tablet 01/24/2022 Provider: LIZ CORTEZ MD Diagnosis: Last Documented On 9:22AM By Osiris Cummings ; [facility] Atorvastatin Calcium 40 MG Oral Tablet 01/24/2022 Pr ovider: LIZ CORTEZ MD Diagnosis: Last Documented On 9:22AM By Osiris Cummings ; [facility] diazePAM 10 MG Oral Tablet 01/01/2022 Provider: Maria R Hawthorne APRN Diagnosis: Last Documented On 9:22AM By Osiris Cummings ; [facility] Medications Administered Includes: Administered Medications from this encounter No Administered Medications Recorded Results Includes: Results discussed during this encounter No Results Recorded For Specified Dates History of Present Illness Includes: History of Present Illness from this encounter No History of Present Illness Recorded Social History No Social History Recorded - Smoking Status Unknown Medical History Includes: Medical History addressed during this encounter No Medical History Recorded Family History Includes: Family History addressed during this encounter No Family History Recorded Review of Systems Includes: Review of Systems from this encounter No Review of Systems Recorded Mental Status Includes: Mental Status from this encounter No Mental Status Recorded Functional Status Includes: Functional Status from this encounter No Functional Status Recorded Physical Exam Includes: Physical Exam from this encounter No Physical Exam Recorded Allergies Includes: Active Allergies No Known Allergies Encounters Encounter Provider Location Date Check-In Time Check-Out Time Diagnosis Orthotics Footmaxx Geo Becerril DPM [facility] 06/26/2022 11:07AM 11:59PM Insurance Includes: Active Insurance Policies Plan Name Member ID Group # Subscriber Relationship Effect sukhdev Dates 1 - PMA [id number] NOEMI SHARMA Self 022 - Unknown Clinical Notes Includes: Clinical Notes from this encounter No Clinical Notes Recorded
--- OUTSIDE RECORDS SUMMARY | 2024-09-04 10:15 | XMS_ITS | Clinical Summary ---
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 I did review the history. He had a crush injury of the right foot with multiple fractures which have long since healed. 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 Boateng of pain management. I did review this history with him. He has ongoing symptoms. He will ultimately require a functional capacity evaluation. He does not need me as a foot and ankle surgeon. I am going to discharge him from care but he does need ongoing treatment with pain management. He has continued plans including the possibility of a spinal cord stimulator. I will leave that to the experts to decipher what is the best treatment option for him. I will keep him on a sedentary work restriction. I have no additional treatment recommendation for this patient and I will discharge him from my care. He may ultimately require an FCE as noted above along with a PPI. After the patient was seen and discharged today the Worker's Comp. community case manager presented himself and wished to have a separate discussion. I had a separate meeting in a separate room with the patient's community case manager. The community case manager requested information with regard to my recommendations for the care of the patient, as well as coordination of care. A substantial period of time was spent coordinating the care beyond the regular patient visit time allotted with the patient in order to satisfactorily address the questions of the community case manager and indirectly, the interest of Worker's Compensation. - Last Documented On 01/25/2023 11:02AM ; [facility] Instructions to patient Intervention and counseling on cessation of tobacco use Last Documented On 3 10:08AM ; [facility] Lose weight Last Documented On 3 10:08AM ; [facility] Assessments Includes: Assessments from this encounter Findings Geo Becerril DPM made the following assessments - Last Documented On 01/25/2023 11:02AM ; [facility] - Overweight - Last Documented On 01/25/2023 11:02AM ; [facility] Crush injury right foot with healed proximal second and third metatarsal fractures, date of injury February 2022 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 - Last Documented On 01/25/2023 11:02AM ; [facility] Instructions Includes: Instructions from this encounter Instructions to patient Intervention and counseling on cessation of tobacco use Last Documented On 3 10:08AM ; [facility] Lose weight Last Documented On 3 10:08AM ; [facility] Medical Equipment - Implanted Devices Includes: Current Devices No Medical Equipment Recorded Medications Includes: Medications discussed during this encounter and other current Medications Current Medications (continue as prescribed) Deerfield 5-325 MG Oral Tablet 01/25/2023 Provider: Diagnosis: Last Documented On 3 10:16AM By Princess Alberto ; [facility] Famotidine 40 MG Oral Tablet 09/04/2022 Provider: Ann-Marie Hawthorne APRN Diagnosis: Last Documented On 3 10:10AM By Ashley Ramírez ; [facility] Gabapentin 300 MG Oral Capsule 08/27/2022 Provider: Diagnosis: Last Documented On 3 10:10AM By Ashley [facility] Amitriptyline HCl 50 MG Oral Tablet 08/24/2022 Provi shaggy: Diagnosis: Last Documented On 3 10:10AM By Ashley Ramírez ; [facility] Ibuprofen 600 MG Oral Tablet 02/19/2022 Provider: Diagnosis: Last Documented On 2 9:22AM By Osiris Cummings ; [facility] HYDROcodone-Acetaminophen 5-325 MG Oral Tablet 022 Provider: Diagnosis: Last Documented On 2 9:22AM By Osiris Cummings ; [facility] Losartan Potassium 100 MG Oral Tablet 01/24/2022 Pro vider: LIZ CORTEZ MD Diagnosis: Last Documented On 9:22AM By Osiris Cummings ; [facility] Levothyroxine Sodium 112 MCG Oral Tablet 01/24/2022 Provider: LIZ CORTEZ MD Diagnosis: Last Documented On 9:22AM By Osiris Cummings ; [facility] Escitalopram Oxalate 20 MG O ral Tablet 01/24/2022 Provider: Ann-Marie wells REGISTERED MEDICAL ASSISTANT Diagnosis: Last Documented On 2 9:22AM By Osiris Cummings ; [facility] Carvedilol 6.25 MG Oral Tablet 01/24/2022 Provider: LIZ CORTEZ MD Diagnosis: Last Documented On 2 9:22AM By Osiris Cummings ; [facility] Atorvastatin Calcium 40 MG Oral Tablet 01/24/2022 Pr ovider: LIZ CORTEZ MD Diagnosis: Last Documented On 2 9:22AM By Osiris Cummings ; [facility] diazePAM 10 MG Oral Tablet 01/01/2022 Provider: Maria R Hawthorne REGISTERED MEDICAL ASSISTANT Diagnosis: Last Documented On 2 9:22AM By Osiris Cummings ; [facility] Past Medications on file Gabapentin 100 MG Oral Capsule 04/02/2022 - 05/17/2022 Provider: Geo Becerril DPM Diagnosis: 1 every bedtime Last Documented On 2 3:16PM By Dr. Becerril ; [facility] Gabapentin 100 MG Oral Capsule 03/02/2022 - 04/01/2022 Provider: Geo Becerril DPEzequiel Diagnosis: 1 every bedtime Last Documented On 2 2:16PM By Dr. Becerril ; [facility] Medications Administered Includes: Administered Medications from this encounter No Administered Medications Recorded Vital Signs Includes: Vital Signs from this encounter Vital Name 01/25/2023 10:16A Height (in) 67 Weight (lb) 242 Body Mass Index 37.9 Body Surface Area 2.2 Note: mdv Last Documented: On 01/25/2023 10:17A M ; [facility] Results Includes: Results discussed during this encounter [...] is a 57-year-old male who is seen today for follow-up of a crush injury to the right foot that occurred as it related to his normal job duties on February 16, 2022. He is here today for follow-up. He has crutches he has an antalgic gait pattern. He is very slow moving. He continues to subjectively complaining of pain in the foot ankle and lower leg on the right side. His care has been transferred from Dr. Martinez of pain management to Dr. Surendra Boateng. Apparently Dr. Martinez has retired. This patient has had a popliteal nerve block by Dr. Boateng about 3 weeks ago and had another one yesterday and is now on narcotic pain medication. Apparently there is been a discussion about a spinal cord stimulator. This patient is here for follow-up. He does walk with a crutch on the right side. Social History Description Last Updated Tobacco use 09/24/2022 Last Documented On 3 10:08AM ; [facility] Caffeine use 02/21/2022 Last Documented On 3 10:08AM ; [facility] Exercising regularly 02/21/2022 Last Documented On 3 10:08AM ; [facility] Yes, current smoker. 02/21/2022 Last Documented On 3 10:08AM ; [facility] Tobacco non-user 02/21/2022 Last Documented On 3 10:08AM ; [facility] No recent change in diet 02/21/2022 Last Documented On 3 10:08AM ; [facility] Not using alcohol 02/21/2022 Last Documented On 3 10:08AM ; [facility] Not using drugs 02/21/2022 Last Documented On 3 10:08AM ; [facility] Smoking Status Unknown Procedures and Surgical History Includes: Procedures from this encounter Procedures Code Diagnosis Performing Provider Service L ocation Service Date intervention and counseling on cessation of tobacco use 4000F Last Documented On 3 10:08AM ; [facility] use of tobacco assessment performed 1000F Last Documented On 3 10:08AM ; [facility] no influenza immunization patient refuse d Last Documented On 3 10:08AM ; [facility] review of medications documented 1160F Last Documented On 3 10:08AM ; [facility] an X-ray was performed 05/15/2022 [id number] Last Documented On 3 10:08AM ; [facility] an MRI was performed 02/28/2022 [id number] Last Documented On 3 10:08AM ; [facility] Surgical History Last Updated History of heart surgery 02/21/2022 Last Documented On 3 10:08AM ; [facility] Medical History Includes: Medical History addressed during this encounter Description Last Updated History of depression 02/21/2022 Last Documented On 3 10:08AM ; [facility] History of History of Heart Attack / Str isela 02/21/2022 Last Documented On 3 10:08AM ; [facility] History of Hypertension 02/21/2022 Last Documented On 3 10:08AM ; [facility] History of Thyroid Disease 02/21/2022 Last Documented On 3 10:08AM ; [facility] No recent immunization for flu 2 Last Documented On 3 10:08AM ; [facility] No recent immunization for pneumococcal pneumonia 02/21/2022 Last Documented On 3 10:08AM ; [facility] Family History Includes: Family History addressed during this encounter Description Last Updated Family history of heart disease 02/22/20 22 Last Documented On 3 10:08AM ; [facility] Review of Systems Includes: Review of [...] Location Date Check-In Time Check-Out Time Diagnosis WC FOLLOW UP/EST Geo Becerril DPM [facility] 01/26/20 23 9:51AM 10:27AM Overweight Insurance Includes: Active Insurance Policies Plan Name Member ID Group # Subscriber Relationship Effect sukhdev Dates 1 - [facility] [id number] NOEMI SHARMA Self 022 - Unknown Clinical Notes Includes: Clinical Notes from this encounter * Progress note Date Encounter Last Documented by 01/25/2023 FOLLOW UP/EST Last documented on 01/25/2023; 11:02 AM, Geo Becerril DPM; [facility] Active Problems & Conditions - Pain [...] is a 57-year-old male who is seen today for follow-up of a crush injury to the right foot that occurred as it related to his normal job duties on February 16, 2022. He is here today for follow-up. He has crutches he has an antalgic gait pattern. He is very slow moving. He continues to subjectively complaining of pain in the foot ankle and lower leg on the right side. His care has been transferred from Dr. Martinez of pain management to Dr. Surendra Boateng. Apparently Dr. Martinez has retired. This patient has had a popliteal nerve block by Dr. Boateng about 3 weeks ago and had another one yesterday and is now on narcotic pain medication. Apparently there is been a discussion about a spinal cord stimulator. This patient is here for follow-up. He does walk with a crutch on the right side. Current Medication - Amitriptyline HCl 50 MG Oral Tablet 30 days, 0 refills - Atorvastatin Calcium 40 MG Oral Tablet 30 days, 0 refills - Carvedilol 6.25 MG Oral Tablet 30 days, 0 refills - diazePAM 10 MG Oral Tablet 30 days, 0 refills - Escitalopram Oxalate 20 MG Oral Tablet 30 days, 0 refills - Famotidine 40 MG Oral Tablet 30 days, 0 refills - Gabapentin 300 MG Oral Capsule 30 days, 0 refills - HYDROcodone-Acetaminophen 5-325 MG Oral Tablet 3 days, 0 refills - Ibuprofen 600 MG Oral Tablet 10 days, 0 refills - Levothyroxine Sodium 112 MCG Oral Tablet 30 days, 0 refills - Losartan Potassium 100 MG Oral Tablet 30 days, 0 refills - Deerfield 5-325 MG Oral Tablet 0 days, 0 refills Past Medical/Surgical History Reported: [...] allergic reaction. Physical Findings - Vitals taken 01/25/2023 10:16 am mdv Height 67 in 60 - 80 Weight 242 lbs 125 - 225 Body Mass Index 37.9 kg/m2 Body Surface Area 2.2 m2 This is a well-developed well-nourished 57-year-old male who is here for evaluation of the foot ankle and lower leg on the right side. he is alert and oriented x3. He is in no acute distress. He has chronic appearing swelling of that foot ankle and lower leg. There is no palpable cord in the calf to indicate DVT. He has no tenderness to the foot itself. There is no allodynia. He has good hair growth. He has limited ability to flex and extend the toes. Strength in all directions is somewhat diminished. No other acutely abnormal finding is noted Tests three-view x-rays of the right foot are negative for acute fracture dislocation. All previously noted fractures are well-healed. There is no obvious degenerative change. No other acutely abnormal finding is noted. Incidental note of infracalcaneal and retrocalcaneal spurring and a subtle Aniket's deformity are noted. Assessment Geo Becerril DPM made the following assessments - Overweight Crush injury right foot with healed proximal second and third metatarsal fractures, date of injury February 2022 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 Previous Tests Imaging: X-Ray: An X-ray was performed 05/15/[address] [facility]. MRI Scan: An MRI was performed 02/28/2022 [facility]. Therapy - Intervention and counseling on cessation of tobacco use. Counseling/Education Geo Becerril DPM performed the following counseling: - Lose weight Plan I had a lengthy discussion with this patient regarding the findings. I did review the history. He had a crush injury of the right foot with multiple fractures which have long since healed. 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 Boateng of pain management. I did review this history with him. He has ongoing symptoms. He will ultimately require a functional capacity evaluation. He does not need me as a foot and ankle surgeon. I am going to discharge him from care but he does need ongoing treatment with pain management. He has continued plans including the possibility of a spinal cord stimulator. I will leave that to the experts to decipher what is the best treatment option for him. I will keep him on a sedentary work restriction. I have no additional treatment recommendation for this patient and I will discharge him from my care. He may ultimately require an FCE as noted above along with a PPI. After the patient was seen and discharged today the Worker's Comp. community case manager presented himself and wished to have a separate discussion. I had a separate meeting in a separate room with the patient's community case manager. The community case manager requested information with regard to my recommendations for the care of the patient, as well as coordination of care. A substantial period of time was spent coordinating the care beyond the regular patient visit time allotted with the patient in order to satisfactorily address the questions of the community case manager and indirectly, the interest of Worker's Compensation. Practice Management Use of tobacco assessment performed Review of medications documented; No influenza immunization patient refused. Care Team - LIZ CORTEZ MD - DISPOSAL OPERATOR Notes This dictation was done with voice recognition software and may contain errors and omissions.
--- OUTSIDE RECORDS SUMMARY | 2024-09-04 10:15 | XMS_ITS | Clinical Summary ---
Author Organization [facility] , [facility] Address [address] [place] [address] Phone Care Team Providers Care Multi Skilled Operator Name Role Phone LIZ CORTEZ MD Primary Care Provider [phone] Jerrica GUPTA, Geo Heck Unavailable [phone] Reason for Visit and Chief Complaint The Chief Complaint is: Right foot pain Problems Includes: Problems addressed during this encounter and other active Problems All Visits Onset Date Resolved Date Provider Condition S tatus Pain in the Right Foot 02/21/2022 Geo powell DPEzequiel Active Last Documented On 2 9:10AM ; [facility] Plan of Treatment I had a lengthy discussion with this patient and his regarding the findings. We did review the timeline of his injury. 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 Dr. Martinez does confirm that and does report this being beneficial for the patient. This patient is now seeing Dr. Martinez on a regular basis and there is consideration for additional treatment modalities. Amitriptyline has recently been added to the gabapentin along with vitamin C. We wrote a continuation of physical therapy order. I encouraged him to stop smoking as has Dr. Martinez. This is a significant contributory factor to CRPS and his ability to recover. 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 Martinez. This will take quite some time to recover. I will have him on seated work. We will plan to see him back in 3 months for follow-up as most of his treatment at this point needs to be coordinated by pain management. the patient is understanding of this as is the Worker's Compensation bilingual case manager. I had a separate meeting in a separate room with the patient's bilingual case manager. The bilingual case manager requested information with regard to my recommendations for the care of the patient, as well as coordination of care. A substantial period of time was spent coordinating the care beyond the regular patient visit time allotted with the patient in order to satisfactorily address the questions of the bilingual case manager and indirectly, the interest of Worker's Compensation. - Last Documented On 06/26/2022 11:24AM ; [facility] Pending Tests Order Diagnosis Results Due Ordering P liat Therapy - Physical Therapy Foot Pain in right foot 0 06/26/22 Geo Becerril DPM Last Documented On 3 11:24AM ; [facility], [facility] Assessments Includes: Assessments from this encounter Findings Crush injury right foot with healed proximal second and third metatarsal fractures, date of injury February 2022 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 - Last Documented On 06/26/2022 11:24AM ; [facility] Medical Equipment - Implanted Devices Includes: Current Devices No Medical Equipment Recorded Medications Includes: Medications discussed during this encounter and other current Medications Current Medications (continue as prescribed) Villard 5-325 MG Oral Tablet 01/25/2023 Provider: Diagnosis: Last Documented On 3 10:16AM By Princess Alberto ; [facility] Famotidine 40 MG Oral Tablet 09/04/2022 Provider: Ann-Marie Hawthorne APRN Diagnosis: Last Documented On 3 10:10AM By Ashley Ramírez ; [facility] Gabapentin 300 MG Oral Capsule 08/27/2022 Provider: Diagnosis: Last Documented On 3 10:10AM By Ashley Ramírez ; [facility] Amitriptyline HCl 50 MG Oral Tablet 08/24/2022 Provi shaggy: Diagnosis: Last Documented On 3 10:10AM By Ashley Ramírez ; [facility] Ibuprofen 600 MG Oral Tablet 02/19/2022 Provider: Diagnosis: Last Documented On 2 9:22AM By Osiris Cummings ; [facility] HYDROcodone-Acetaminophen 5-325 MG Oral Tablet 022 Provider: Diagnosis: Last Documented On 2 9:22AM By Osiris Cummings ; [facility] Losartan Potassium 100 MG Oral Tablet 01/24/2022 Pro vider: LIZ CORTEZ MD Diagnosis: Last Documented On 9:22AM By Osiris Cummings ; [facility] Levothyroxine Sodium 112 MCG Oral Tablet 01/24/2022 Provider: LIZ CORTEZ MD Diagnosis: Last Documented On 2 9:22AM By Osiris Cummings ; [facility] Escitalopram Oxalate 20 MG O ral Tablet 01/24/2022 Provider: Ann-Marie wells GRAVE DIGGER Diagnosis: Last Documented On 9:22AM By Osiris Cummings ; [facility] Carvedilol 6.25 MG Oral Tablet 01/24/2022 Provider: LIZ CORTEZ MD Diagnosis: Last Documented On 2 9:22AM By Osiris Cummings ; [facility] Atorvastatin Calcium 40 MG Oral Tablet 01/24/2022 Pr ovider: LIZ CORTEZ MD Diagnosis: Last Documented On 2 9:22AM By Osiris Cummings ; [facility] diazePAM 10 MG Oral Tablet 01/01/2022 Provider: Maria R Hawthorne APRN Diagnosis: Last Documented On 9:22AM By Osiris Cummings ; [facility] Past Medications on file Gabapentin 100 MG Oral Capsule 04/02/2022 - 05/17/2022 Provider: Geo Becerril DPM Diagnosis: 1 every bedtime Last Documented On 2 3:16PM By Dr. Becerril ; [facility] Gabapentin 100 MG Oral Capsule 03/02/2022 - 04/01/2022 Provider: Geo Becerril DPM Diagnosis: 1 every bedtime Last Documented On 2 2:16PM By Dr. Becerril ; [facility] Medications Administered Includes: Administered Medications from this encounter No Administered Medications Recorded Vital Signs Includes: Vital Signs from this encounter Vital Name 06/26/2022 10:28A Height (in) 67 Weight (lb) 222 Body Mass Index 34.8 Body Surface Area 2.1 Note: sjs Last Documented: On 06/26/2022 10:28A M ; [facility] Results Includes: Results discussed during this encounter No Results Recorded For Specified Dates History of Present Illness Includes: History of Present Illness from this encounter LIZETT SHARMA is a 57 year old male. - Allergy list reviewed - Problem list reviewed - Medication list reviewed - Previous history of new onset pain 02/16/2022 Work Injury Forklift hit pt's right foot This patient returns for evaluation of a work-related injury in February 2022 involving the right foot. He had a crush type injury. We advised him early on the process this was a rather notable injury. He had 2 sets of negative x-rays before he came to me. Advanced imaging indicated subtle metatarsal fractures. He very quickly evolved into more of a soft tissue injury with question of CRPS very early in the process. I started him on vitamin C and gabapentin and have had him in physical therapy early in the process. He tells me since I last saw him he really is not any different whatsoever. He tells me is not better and he also tells me he is not worse. Most of his complaints are soft tissue in nature with stiffness and dysesthesias. He has seen Dr. Martinez of pain management who has seen this patient on 2 separate occasions with a lengthy notes which have just today been forwarded to me. 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 Martinez has added amitriptyline. Social History Description Last Updated Caffeine use 02/21/2022 Last Documented On 3 10:27AM ; [facility] Exercising regularly 02/21/2022 Last Documented On 3 10:27AM ; [facility] Yes, current smoker. 02/21/2022 Last Documented On 3 10:27AM ; [facility] Tobacco non-user 02/21/2022 Last Documented On 3 10:27AM ; [facility] No recent change in diet 02/21/2022 Last Documented On 3 10:27AM ; [facility] Not using alcohol 02/21/2022 Last Documented On 3 10:27AM ; [facility] Not using drugs 02/21/2022 Last Documented On 3 10:27AM ; [facility] Smoking Status Unknown Procedures and Surgical History Includes: Procedures from this encounter Procedures Code Diagnosis Performing Provider Service L ocation Service Date use of tobacco assessment performed 1000F Last Documented On 3 10:27AM ; [facility] no influenza immunization patient refuse d Last Documented On 3 10:27AM ; [facility] an X-ray was performed 05/15/2022 [id number] Last Documented On 3 10:27AM ; [facility] an MRI was performed 02/28/2022 [id number] Last Documented On 3 10:27AM ; [facility] Surgical History Last Updated History of heart surgery 02/21/2022 Last Documented On 3 10:27AM ; [facility] Medical History Includes: Medical History addressed during this encounter Description Last Updated History of depression 02/21/2022 Last Documented On 3 10:27AM ; [facility] History of History of Heart Attack / Str isela 02/21/2022 Last Documented On 3 10:27AM ; [facility] History of Hypertension 02/21/2022 Last Documented On 3 10:27AM ; [facility] History of Thyroid Disease 02/21/2022 Last Documented On 3 10:27AM ; [facility] No recent immunization for flu 2 Last Documented On 3 10:27AM ; [facility] No recent immunization for pneumococcal pneumonia 02/21/2022 Last Documented On 3 10:27AM ; [facility] Family History Includes: Family History addressed during this encounter Description Last Updated Family history of heart disease 02/22/20 Last Documented On 3 10:27AM ; [facility] Review of Systems Includes: Review of [...] Time Diagnosis FOLLOW UP/EST Geo Becerril DPM [facility] 06/26/19 23 10:04AM 11:18AM Insurance Includes: Active Insurance Policies Plan Name Member ID Group # Subscriber Relationship Effect sukhdev Dates - [facility] [id number] NOEMI SHARMA Self 022 - Unknown Clinical Notes Includes: Clinical Notes from this encounter * Progress note Date Encounter Last Documented by 06/26/2022 FOLLOW UP/EST Last documented on 06/26/2022; 11:24 AM, Geo Becerril DPM; [facility] Active Problems & Conditions - Pain [...] Injury Forklift hit pt's right foot This patient returns for evaluation of a work-related injury in February 2022 involving the right foot. He had a crush type injury. We advised him early on the process this was a rather notable injury. He had 2 sets of negative x-rays before he came to me. [facility] imaging indicated subtle metatarsal fractures. He very quickly evolved into more of a soft tissue injury with question of CRPS very early in the process. I started him on vitamin C and gabapentin and have had him in physical therapy early in the process. He tells me since I last saw him he really is not any different whatsoever. He tells me is not better and he also tells me he is not worse. Most of his complaints are soft tissue in nature with stiffness and dysesthesias. He has seen Dr. Martinez of pain management who has seen this patient on 2 separate occasions with a lengthy notes which have just today been forwarded to me. 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 Martinez has added amitriptyline. Current Medication - Amitriptyline HCl 25 MG Oral Tablet 30 days, 0 refills - Atorvastatin Calcium 40 MG Oral Tablet 30 days, 0 refills - Carvedilol 6.25 MG Oral Tablet 30 days, 0 refills - diazePAM 10 MG Oral Tablet 30 days, 0 refills - Escitalopram Oxalate 20 MG Oral Tablet 30 days, 0 refills - HYDROcodone-Acetaminophen 5-325 [...] allergic reaction. Physical Findings - Vitals taken 06/26/2022 10:28 am s Height 67 in 60 - 80 Weight 222 lbs 125 - 225 Body Mass Index 34.8 kg/m2 Body Surface Area 2.1 m2 This is a 57-year-old male who is seen for evaluation of the foot ankle and lower leg on the right side. He does have kind of a dusky coloration of the skin. This is not vascular in nature but it is really more related to his diagnosis of CRPS. He has stiffness with motion through the foot and the ankle also consistent with CRPS. Achilles deep tendon reflexes within normal limits. He does not have any overt allodynia on my exam today but that has been a concern and a finding in the past. He has limited ability to flex and extend the toes. He seems to be generally hesitant to allow any manipulation of the foot ankle or lower leg. His DP and PT pulses are palpable. He distinctly does not have any metatarsal pain. Tests Three-view x-rays of the right foot indicate complete healing of the proximal second and third metatarsal fractures. These fractures were distal to the tarsometatarsal joint complex. He has a cavus foot structure. He has infracalcaneal and retrocalcaneal spurring. No other acutely abnormal finding is noted radiographically. Sudek's atrophy is not noted on these images Assessment Crush injury right foot with healed proximal second and third metatarsal fractures, date of injury February 2022 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 Previous Tests Imaging: X-Ray: An X-ray was performed 05/15/2022 [facility]. MRI Scan: An MRI was performed 02/28/2022 [facility] StartCited - Pain in right foot Therapy/Physical Therapy: Foot Instructions: See PT order attached EndCited I had a lengthy discussion with this patient and his regarding the findings. We did review the timeline of his injury. 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 Dr. Martinez does confirm that and does report this being beneficial for the patient. This patient is now seeing Dr. Martinez on a regular basis and there is consideration for additional treatment modalities. Amitriptyline has recently been added to the gabapentin along with vitamin C. We wrote a continuation of physical therapy order. I encouraged him to stop smoking as has Dr. Martinez. This is a significant contributory factor to CRPS and his ability to recover. 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 Martinez. This will take quite some time to recover. I will have him on seated work. We will plan to see him back in 3 months for follow-up as most of his treatment at this point needs to be coordinated by pain management. the patient is understanding of this as is the Worker's Compensation bilingual case manager. I had a separate meeting in a separate room with the patient's bilingual case manager. The bilingual case manager requested information with regard to my recommendations for the care of the patient, as well as coordination of care. A substantial period of time was spent coordinating the care beyond the regular patient visit time allotted with the patient in order to satisfactorily address the questions of the bilingual case manager and indirectly, the interest of Worker's Compensation. Practice Management Use of tobacco assessment performed; No influenza immunization patient refused. Care Team - LIZ CORTEZ MD - LANDSCAPER HELPER Notes This dictation was done with voice recognition software and may contain errors and omissions.
--- OUTSIDE RECORDS SUMMARY | 2024-09-04 10:15 | XMS_ITS | Clinical Summary ---
Author Organization [facility] , [facility] Address [address] [place] [address] Phone Care Team Providers Care Cigar Head Piercer Name Role Phone LIZ CORTEZ MD Primary Care Provider [phone] Jerrica GUPTA, Geo Heck Unavailable [phone] Reason for Visit and Chief Complaint The Chief Complaint is: Right foot pain Problems Includes: Problems addressed during this encounter and other active Problems All Visits Onset Date Resolved Date Provider Condition S tatus Pain in the Right Foot 02/21/2022 Geo powell DPEzequiel Active Last Documented On 2 9:10AM ; [facility] Plan of Treatment Today, I again had a long discussion with this patient regarding the findings. We did review his improvement. He is walking a mile per day. He recently tried to mow his yard which really set this off for 3 to 4 days with increased pain but it is starting to settle down again. He has plans to continue with Dr. Martinez of pain management with amitriptyline, gabapentin, vitamin C. Dr. Martinez has suggested it may be until January or February which was the year anniversary of the injury before this fully resolves but has been very open with the patient and has advised this patient that he may always have some level of pain and discomfort as can be the case with any CRPS situation. I have reviewed and reinforced that same idea with this patient. I have no reason to see him back until late January which is roughly the 1 year anniversary. I am not ready to make any kind of judgment with regard to long-term impairment rating etc until we give this at least a year. We may need to consider a functional capacity evaluation and impairment rating as time moves forward. I explained this to the patient and his . They are understanding and agreeable. I had a separate meeting in a separate room with the patient's telehealth case manager. The telehealth case manager requested information with regard to my recommendations for the care of the patient, as well as coordination of care. A substantial period of time was spent coordinating the care beyond the regular patient visit time allotted with the patient in order to satisfactorily address the questions of the telehealth case manager and indirectly, the interest of Worker's Compensation. - Last Documented On 09/24/2022 10:45AM ; [facility], [facility] Instructions to patient Intervention and counseling on cessation of tobacco use Last Documented On 3 10:09AM ; [facility], [facility] Lose weight Last Documented On 3 10:09AM ; [facility], [facility] Assessments Includes: Assessments from this encounter Findings Crush injury right foot with healed proximal second and third metatarsal fractures, date of injury February 2022 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 - Last Documented On 09/24/2022 10:45AM ; [facility], [facility] Instructions Includes: Instructions from this encounter Instructions to patient Intervention and counseling on cessation of tobacco use Last Documented On 3 10:09AM ; [facility], [facility] Lose weight Last Documented On 3 10:09AM ; [facility], [facility] Medical Equipment - Implanted Devices Includes: Current Devices No Medical Equipment Recorded Medications Includes: Medications discussed during this encounter and other current Medications Discontinued / Stopped on this date on 06/19/2022 Amitriptyline HCl 25 MG Oral Tablet Provi shaggy: Diagnosis: Last Documented On 3 10:10AM By Ashley Ramírez ; [facility], [facility] Current Medications (continue as prescribed) [place] 5-325 MG Oral Tablet 01/25/2023 Provider: Diagnosis: Last Documented On 3 10:16AM By Princess Alberto ; [facility], [facility] Famotidine 40 MG Oral Tablet 09/04/2022 Provider: Ann-Marie Hawthorne APRN Diagnosis: Last Documented On 3 10:10AM By Ashley Ramírez ; [facility], [facility] Gabapentin 300 MG Oral Capsule 08/27/2022 Provider: Diagnosis: Last Documented On 3 10:10AM By Ashley Ramírez ; [facility] Amitriptyline HCl 50 MG Oral Tablet 08/24/2022 Provi shaggy: Diagnosis: Last Documented On 3 10:10AM By Ashley Ramírez ; [facility] Ibuprofen 600 MG Oral Tablet 02/19/2022 Provider: Diagnosis: Last Documented On 2 9:22AM By Osiris Cummings ; [facility] HYDROcodone-Acetaminophen 5-325 MG Oral Tablet 022 Provider: Diagnosis: Last Documented On 2 9:22AM By Osiris Cummings ; [facility] Losartan Potassium 100 MG Oral Tablet 01/24/2022 Pro vider: LIZ CORTEZ MD Diagnosis: Last Documented On 9:22AM By Osiris Cummings ; [facility] Levothyroxine Sodium 112 MCG Oral Tablet 01/24/2022 Provider: LIZ CORTEZ MD Diagnosis: Last Documented On 2 9:22AM By Osiris Cummings ; [facility] Escitalopram Oxalate 20 MG O ral Tablet 01/24/2022 Provider: Ann-Marie wells [employer] Diagnosis: Last Documented On 2 9:22AM By Osiris Cummings ; [facility] Carvedilol 6.25 MG Oral Tablet 01/24/2022 Provider: LIZ CORTEZ MD Diagnosis: Last Documented On 2 9:22AM By Osiris Cummings ; [facility] Atorvastatin Calcium 40 MG Oral Tablet 01/24/2022 Pr ovider: LIZ CORTEZ MD Diagnosis: Last Documented On 2 9:22AM By Osiris Cummings ; [facility] diazePAM 10 MG Oral Tablet 01/01/2022 Provider: Maria R Hawthorne APRN Diagnosis: Last Documented On 2 9:22AM By Osiris Cummings ; [facility] Past Medications on file Gabapentin 100 MG Oral Capsule 04/02/2022 - 05/17/2022 Provider: Geo Becerril DPM Diagnosis: 1 every bedtime Last Documented On 2 3:16PM By Dr. Becerril ; [facility], [facility] Gabapentin 100 MG Oral Capsule 03/02/2022 - 04/01/2022 Provider: Geo Becerril DPEzequiel Diagnosis: 1 every bedtime Last Documented On 2 2:16PM By Dr. Becerril ; [facility], [facility] Medications Administered Includes: Administered Medications from this encounter No Administered Medications Recorded Vital Signs Includes: Vital Signs from this encounter Vital Name 09/24/2022 10:09A Height (in) 67 Weight (lb) 242 Body Mass Index 37.9 Body Surface Area 2.2 Note: sjs Last Documented: On 09/24/2022 10:09A M ; [facility], [facility] Results Includes: Results discussed during this encounter [...] This is a 57-year-old male who is here for evaluation of the foot ankle and lower leg on the right side. He had a crush injury in early February 2022. The metatarsal fractures associated with that injury have long since healed. We have more recently been dealing with CRPS and he sees Dr. Cj Martinez of pain management and is currently on amitriptyline, gabapentin and vitamin C. He has discontinued formal physical therapy but continues to work on things on his own. He is up to walking roughly a mile per day with his . He did recently try to mow his yard and felt like that was a little too much. He and Dr. Martinez feel as though he is improving this is according to the discussion I had with the patient and his today. I do not have the most recent note from Dr. Martinez at the time of this dictation.He has been on a seated work duty. Social History Description Last Updated Tobacco use 09/24/2022 Last Documented On 3 10:45AM ; [facility], [facility] Caffeine use 02/21/2022 Last Documented On 3 10:08AM ; [facility], [facility] Exercising regularly 02/21/2022 Last Documented On 3 10:08AM ; [facility], [facility] Yes, current smoker. 02/21/2022 Last Documented On 3 10:08AM ; [facility], [facility] No recent change in diet 02/21/2022 Last Documented On 3 10:08AM ; [facility], [facility] Not using alcohol 02/21/2022 Last Documented On 3 10:08AM ; [facility] Not using drugs 02/21/2022 Last Documented On 3 10:08AM ; [facility], [facility] Smoking Status Unknown Procedures and Surgical History Includes: Procedures from this encounter Procedures Code Diagnosis Performing Provider Service L ocation Service Date intervention and counseling on cessation of tobacco use 4000F Last Documented On 3 10:09AM ; [facility], [facility] use of tobacco assessment performed 1000F Last Documented On 3 10:09AM ; [facility] no influenza immunization patient refuse d Last Documented On 3 10:09AM ; [facility] an X-ray was performed 05/15/2022 [id number] Last Documented On 3 10:09AM ; [facility], [facility] an MRI was performed 02/28/2022 E [id number] Last Documented On 3 10:09AM ; [facility] Surgical History Last Updated History of heart surgery 02/21/2022 Last Documented On 3 10:08AM ; [facility], [facility] Medical History Includes: Medical History addressed during this encounter Description Last Updated History of depression 02/21/2022 Last Documented On 3 10:08AM ; [facility], [facility] History of History of Heart Attack / Str isela 02/21/2022 Last Documented On 3 10:08AM ; [facility], [facility] History of Hypertension 02/21/2022 Last Documented On 3 10:08AM ; [facility], [facility] History of Thyroid Disease 02/21/2022 Last Documented On 3 10:08AM ; [facility] No recent immunization for flu 2 Last Documented On 3 10:08AM ; [facility] No recent immunization for pneumococcal pneumonia 02/21/2022 Last Documented On 3 10:08AM ; [facility] Family History Includes: Family History addressed during this encounter Description Last Updated Family history of heart disease 02/22/20 22 Last Documented On 3 10:08AM ; [facility] Review of Systems Includes: Review of [...] Time Diagnosis WC FOLLOW UP/EST Geo Becerril [facility] 09/25/19 23 9:56AM 10:42AM Insurance Includes: Active Insurance Policies Plan Name Member ID Group # Subscriber Relationship Effect sukhdev Dates 1 - PMA [id number] NOEMI SHARMA Self [id number] - Unknown Clinical Notes Includes: Clinical Notes from this encounter * Progress note Date Encounter Last Documented by 09/24/2022 WC FOLLOW UP/EST Last documented on 09/24/2022; 10:45 AM, Geo Becerril DPM; [facility], [facility] Active Problems & Conditions - Pain in [...] This is a 57-year-old male who is here for evaluation of the foot ankle and lower leg on the right side. He had a crush injury in early February 2022. The metatarsal fractures associated with that injury have long since healed. We have more recently been dealing with CRPS and he sees Dr. Cj Martinez of pain management and is currently on amitriptyline, gabapentin and vitamin C. He has discontinued formal physical therapy but continues to work on things on his own. He is up to walking roughly a mile per day with his . He did recently try to mow his yard and felt like that was a little too much. He and Dr. Martinez feel as though he is improving this is according to the discussion I had with the patient and his today. I do not have the most recent note from Dr. Martinez at the time of this dictation.He has been on a seated work duty. Current Medication - Amitriptyline HCl 50 MG [...] Caffeine use: Caffeine use. Tobacco use: Tobacco use. Alcohol: Not using alcohol. Drug Use: Not [...] allergic reaction. Physical Findings - Vitals taken 09/24/2022 10:09 am [facility] Height 67 in 60 - 80 Weight 242 lbs 125 - 225 Body Mass Index 37.9 kg/m2 Body Surface Area 2.2 m2 Standard Measurements: - Patient was overweight. This is a well-developed well-nourished 57-year-old male who is here for evaluation of the foot ankle and lower leg on the right side. He is alert and oriented x3. He is in no acute distress. He has subtle edema chronic appearing to this right foot. There are some subtle discoloration of this right foot but not substantial. He does not have the allodynia I had noted previously. Light touch sensation appears to be much more tolerable. He has good active motion of the toes and the ankle joint. He has some varicosities indicative of venous insufficiency. There is no calf edema or palpable cord in the calf. I did observe him ambulating in the office with what appears to be a nonantalgic albeit slow gait suzan. Tests Nothing new Assessment Crush injury right foot with healed proximal second and third metatarsal fractures, date of injury February 2022 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 Previous Tests Imaging: X-Ray: An X-ray was performed 05/15/2022 [facility]. MRI Scan: An MRI [place]20[place] [facility] [place] - Intervention and counseling on cessation of tobacco use. Counseling/Education Geo Becerril DPM performed the following counseling: - Lose weight Plan Today, I again had a long discussion with this patient regarding the findings. We did review his improvement. He is walking a mile per day. He recently tried to mow his yard which really set this off for 3 to 4 days with increased pain but it is starting to settle down again. He has plans to continue with Dr. Martinez of pain management with amitriptyline, gabapentin, vitamin C. Dr. Martinez has suggested it may be until January or February which was the year anniversary of the injury before this fully resolves but has been very open with the patient and has advised this patient that he may always have some level of pain and discomfort as can be the case with any CRPS situation. I have reviewed and reinforced that same idea with this patient. I have no reason to see him back until late January which is roughly the 1 year anniversary. I am not ready to make any kind of judgment with regard to long-term impairment rating etc until we give this at least a year. We may need to consider a functional capacity evaluation and impairment rating as time moves forward. I explained this to the patient and his . They are understanding and agreeable. I had a separate meeting in a separate room with the patient's telehealth case manager. The telehealth case manager requested information with regard to my recommendations for the care of the patient, as well as coordination of care. A substantial period of time was spent coordinating the care beyond the regular patient visit time allotted with the patient in order to satisfactorily address the questions of the telehealth case manager and indirectly, the interest of Worker's Compensation. Practice Management Use of tobacco assessment performed; No influenza immunization patient refused. Care Team - LIZ CORTEZ MD - DIRECTOR SOCIAL Notes This dictation was done with voice recognition software and may contain errors and omissions.
--- OUTSIDE RECORDS SUMMARY | 2024-09-04 10:15 | XMS_ITS ---
Care Plan - [facility], [facility] Created on: September 04, 2024 CHAZ NOEMI : 1965 Sex: Male Author Organization [facility] , [facility] Address [address] [place] [phone] Phone Care Team Providers Care Stock Pitcher Name Role Phone LIZ CORTEZ MD Primary Care Provider [phone] Geo Becerril DPM Unavailable [phone]
--- OUTSIDE RECORDS SUMMARY | 2024-09-04 10:15 | XMS_ITS ---
Author Organization [facility] Address [address] [place] [address] Phone Care Team Providers Care Rack Loader Name Role Phone LIZ CORTEZ MD Primary Care Provider [phone] Jerrica GUPTA, Geo Heck Unavailable [phone] Reason for Referral Date Encounter Description Provider Reason for Referral 04/02/22 WC FOLLOW UP/EST Geo Becerril DPM Refer ral To Physician Problems Includes: Active, inactive, and resolved Problems All Visits Onset Date Resolved Date Provider Condition S tatus Pain in the Right Foot 02/21/2022 Geo powell DPM Active Last Documented On 2 9:10AM ; [facility] Plan of Treatment Referrals To Diagnosis Consult for Pain Management Note: Pain mgmt referral. Dr Magdalena Martinez (possible CRPS) or Dr. FEDERICO Boateng Last Documented On 3 8:30AM ; [facility] Instructions to patient Intervention and counseling on cessation of tobacco use Last Documented On 3 10:08AM ; [facility] Lose weight Last Documented On 3 10:08AM ; [facility] Intervention and counseling on cessation of tobacco use Last Documented On 3 10:09AM ; [facility] Lose weight Last Documented On 3 10:09AM ; [facility] Lose weight Last Documented On 2 2:45PM ; [facility] Lose weight Last Documented On 2 1:14PM ; [facility] Lose weight Last Documented On 2 9:53AM ; [facility] Assessments Includes: Assessments for all patient encounters Findings Encounter Date Overweight WC FOLLOW UP/EST with Geo mckenzie DPEzequiel 01/25/2023 Last Documented On 3 11:02AM ; [facility] Instructions Includes: Instructions for all patient encounters Instructions to patient Intervention and counseling on cessation of tobacco use Last Documented On 3 10:08AM ; [facility] Lose weight Last Documented On 3 10:08AM ; [facility] Intervention and counseling on cessation of tobacco use Last Documented On 3 10:09AM ; [facility] Lose weight Last Documented On 3 10:09AM ; [facility] Lose weight Last Documented On 2 2:45PM ; [facility] Lose weight Last Documented On 2 1:14PM ; [facility] Lose weight Last Documented On 2 9:53AM ; [facility] Medical Equipment - Implanted Devices Includes: Current and historical Devices No Medical Equipment Recorded Medications Includes: Current and historical Medications Current Medications (continue as prescribed) Mary Alice 5-325 MG Oral Tablet 01/25/2023 Provider: Diagnosis: Last Documented On 3 10:16AM By Princess Alberto ; [facility] Famotidine 40 MG Oral Tablet 09/04/2022 Provider: Ann-Marie Hawthorne APRN Diagnosis: Last Documented On 3 10:10AM By Ashley Ramírez ; [facility] Gabapentin 300 MG Oral Capsule 08/27/2022 Provider: Diagnosis: Last Documented On 3 10:10AM By Ashley Ramírez ; [facility] Amitriptyline HCl 50 MG Oral Tablet 08/24/2022 Provi shaggy: Diagnosis: Last Documented On 3 10:10AM By Ashley Ramírez ; [facility] Ibuprofen 600 MG Oral Tablet 02/19/2022 Provider: Diagnosis: Last Documented On 2 9:22AM By Osiris Cummings ; [facility] HYDROcodone-Acetaminophen 5-325 MG Oral Tablet 022 Provider: Diagnosis: Last Documented On 2 9:22AM By Osiris Cummings ; [facility] Losartan Potassium 100 MG Oral Tablet 01/24/2022 Pro vider: LIZ CORTEZ MD Diagnosis: Last Documented On 2 9:22AM By Osiris Cummings ; [facility] Levothyroxine Sodium 112 MCG Oral Tablet 01/24/2022 Provider: LIZ CORTEZ MD Diagnosis: Last Documented On 2 9:22AM By Osiris Cummings ; [facility] Escitalopram Oxalate 20 MG O ral Tablet 01/24/2022 Provider: Ann-Marie wells APRN Diagnosis: Last Documented On 9:22AM By Osiris Cummings ; [facility] Carvedilol 6.25 MG Oral Tablet 01/24/2022 Provider: LIZ CORTEZ MD Diagnosis: Last Documented On 9:22AM By Osiris Cummings ; [facility] Atorvastatin Calcium 40 MG Oral Tablet 01/24/2022 Pr ovider: LIZ CORTEZ MD Diagnosis: Last Documented On 2 9:22AM By Osiris Cummings ; [facility] diazePAM 10 MG Oral Tablet 01/01/2022 Provider: Maria R Hawthorne APRN Diagnosis: Last Documented On 2 9:22AM By Osiris Cummings ; [facility] Past Medications on file Amitriptyline HCl 25 MG Oral Tablet 06/19/2022 - 09/24 Provider: Diagnosis: Last Documented On 3 10:10AM By Ashley Ramírez ; [facility] Gabapentin 100 MG Oral Capsule 04/02/2022 - 05/17/2022 Provider: Geo Becerril DPM Diagnosis: 1 every bedtime Last Documented On 2 3:16PM By Dr. Becerril ; [facility] Gabapentin 100 MG Oral Capsule 03/02/2022 - 04/01/2022 Provider: Geo Becerril DPM Diagnosis: 1 every bedtime Last Documented On 2 2:16PM By Dr. Becerril ; [facility] Medications Administered Includes: Administered Medications in patient's chart No Administered Medications Recorded Results Includes: Results from 09/05/2023 through 09/04/2024 No Results Recorded For Specified Dates History of Present Illness History of Present Illness not supported for this document type No History of Present Illness Recorded Social History Description Last Updated Tobacco use 09/24/2022 Last Documented On 3 10:45AM ; [facility] Caffeine use 02/21/2022 Last Documented On 2 10:06AM ; [facility] Exercising regularly 02/21/2022 Last Documented On 2 10:06AM ; [facility] Yes, current smoker. 02/21/2022 Last Documented On 2 10:06AM ; [facility] Tobacco non-user 02/21/2022 Last Documented On 2 10:06AM ; [facility] No recent change in diet 02/21/2022 Last Documented On 2 10:06AM ; [facility] Not using alcohol 02/21/2022 Last Documented On 2 10:06AM ; [facility] Not using drugs 02/21/2022 Last Documented On 2 10:06AM ; [facility] Smoking Status Unknown Procedures and Surgical History Surgical History Last Updated History of heart surgery 02/21/2022 Last Documented On 2 10:06AM ; [facility] Medical History Includes: Medical History in patient's chart Description Last Updated History of depression 02/21/2022 Last Documented On 2 10:06AM ; [facility] History of History of Heart Attack / Str isela 02/21/2022 Last Documented On 2 10:06AM ; [facility] History of Hypertension 02/21/2022 Last Documented On 2 10:06AM ; [facility] History of Thyroid Disease 02/21/2022 Last Documented On 2 10:06AM ; [facility] No recent immunization for flu 2 Last Documented On 2 10:06AM ; [facility] No recent immunization for pneumococcal pneumonia 02/21/2022 Last Documented On 2 10:06AM ; [facility] Family History Includes: Family History in patient's chart Description Last Updated Family history of heart disease 02/22/20 22 Last Documented On 2 10:06AM ; [facility] Review of Systems Review of Systems not supported for this document type No Review of Systems Recorded Mental Status Description Anxiety Functional Status No Functional Status Recorded Physical Exam Physical Exam not supported for this document type No Physical Exam Recorded Allergies Includes: Active, inactive, and resolved Allergies No Known Allergies Insurance Includes: Active Insurance Policies Plan Name Member ID Group # Subscriber Relationship Effect [id number] Dates - [id number] NOEMI SHARMA Self [id number] - Unknown Clinical Notes Includes: Signed Clinical Notes starting from 04/26/2022 No Clinical Notes Recorded
== END 2024-09-04 23:59 | disposition home or self-care (01) ==
LOC: RAD 10:14
PROVIDERS: PCP Internal Medicine Adolescent Medicine; Visit Provider Nurse Practitioner Family
DX: Z12.2 Encounter for screening for malignant neoplasm of respiratory organs (principal); J84.10 Pulmonary fibrosis, unspecified; F17.210 Nicotine dependence, cigarettes, uncomplicated
CPT/HCPCS: 71271

== ENCOUNTER 2024-11-03 13:52 | Outpatient (CLI) | payer BC, SELFPAY ==
--- OUTSIDE RECORDS SUMMARY | 2024-11-03 13:58 | XMS_ITS | Encounter Summary ---
Author Organization [employer] [facility] Address [address] [place] [address] Care Team Providers Care Insurance Broker Name Role Phone Unavailable Primary Care Provider Unavailabl e Reason for Referral * Consultation (Routine) - Closed Specialty Diagnoses / Procedures Referred By Contandre t Referred To Contact Diagnoses Chronic pain syndrome Surendra Boateng MD [address] [address] [place] [address] Phone: tel: fax: Chyna Santoyo, [place] [address] [place] [address] Phone: tel: fax: Referral ID Status Reason Start Date Expiration Date V isits Requested Visits Authorized [id number] Closed Specialty Services Required 03/21/2023 09/17/2023 1 1 Encounter Details Date Type Department Care Team (Late st Contact Info) Description 03/21/2023 Outside Orders [facility] Central Scheduling [address] [place] [address] Surendra Boateng MD [address] [address] [place] [address] Chronic pain syndrome (Primary Dx) Social History Tobacco Use Types Packs/Day Years Used Date Smoking Tobacco: Never Assessed Sex and Gender Information Value Date Recorded Sex Assigned at Not on file Legal Sex Male 5:28 PM CDT Gender Identity Not on file Sexual Orientation Not on file documented as of this encounter Plan of Treatment Scheduled Referrals Name Type Priority Associated Diagnoses Order Schedule Ambulatory referral to Psychology Outpatient Referral Routine Chronic pain syndrome Expected: 03/21/2023, Expires: 03/21/2024 documented as of this encounter Visit Diagnoses Diagnosis Chronic pain syndrome- Primary documented in this encounter
--- OUTSIDE RECORDS SUMMARY | 2024-11-03 13:58 | XMS_ITS | Referral Summary ---
Author Organization [facility] Address [address] [place] [address] Care Team Providers Care It Application Support Analyst Name Role Phone Unavailable Primary Care Provider Unavailabl e Social History Tobacco Use Types Packs/Day Years Used Date Smoking Tobacco: Never Assessed Interpersonal Safety Answer Date Record ed Family or friends hurt you Not on file 05/31 Family or friends insult you Not on file Family or friends threaten you Not on file 0 05/31/2023 Family or friends scream or curse at you Not on file 05/31/2023 Housing Stability Answer Date Recorded Living situation today Not on file Living situation problems Not on file 2023 Food Insecurity Answer Date Recorded Food run out past 12 months Not on file 05/13 Food did not last past 12 months Not on file 05/31/2023 Employment Answer Date Recorded Help finding and keeping a job Not on file 0 05/31/2023 Family and Community Support Answer Connor e Recorded Help with Day to Day Activities Not on file 05/31/2023 Feeling Lonely or Isolated Not on file 05/31 Educational Attainment Answer Date Tho rded Speak language other than Maltese at home Not on file 05/31/2023 Want help with school or training Not on file 05/31/2023 Depression Answer Date Recorded PHQ-2 Risk Not on file 05/31/2023 Disabilities Answer Date Recorded Difficulty concentrating Not on file 024 Difficulty doing errands alone Not on file 0 05/31/2023 Substance Use Answer Date Recorded Used prescription meds for non-medical reasons N ot on file 05/31/2023 Used illegal drugs past 12 months Not on file 05/31/2023 Sex and Gender Information Value Date Recorded Sex Assigned at Not on file Legal Sex Male 5:28 PM CDT Gender Identity Not on file Sexual Orientation Not on file Plan of Treatment Not on file Insurance WORK COMP OTHER WORK COMP OTHER WORK COMP OTHER
--- OUTSIDE RECORDS SUMMARY | 2024-11-03 13:58 | XMS_ITS | Encounter Summary ---
Author Organization [employer] [facility] Address [address] [place] [address] Care Team Providers Care Medical Billing Supervisor Name Role Phone Unavailable Primary Care Provider Unavailabl e Reason for Referral * MRI (Routine) - Closed Specialty Diagnoses / Procedures Referred By Contac t Referred To Contact Radiology Diagnoses Crushing injury of right foot, initial encounter Procedures MRI foot right without contrast Geo Becerril DPM [address] [address] Phone: tel: Referral ID Status Reason Start Date Expiration Date Visits Re quested Visits Authorized [id number] Closed 03/19/2022 09/15/2022 1 1 Encounter Details Date Type Department Care Team (Late st Contact Info) Description 03/19/[address] [facility] Central Scheduling [address] [place] [address] Geo Becerril DPM [address] [phone] Crushing injury of right foot, initial encounter (Primary Dx) Social History Tobacco Use Types Packs/Day Years Used Date Smoking Tobacco: Never Assessed Sex and Gender Information Value Date Recorded Sex Assigned at Not on file Legal Sex Male 5:28 PM CDT Gender Identity Not on file Sexual Orientation Not on file documented as of this encounter Plan of Treatment Scheduled Orders Name Type Priority Associated Diagnoses Orde r Schedule MRI foot right without contrast Imaging Routine Crushing injury of right foot, initial encounter Expected: 03/19/2022, Expires: 04/18/2023 documented as of this encounter Visit Diagnoses Diagnosis Crushing injury of right foot, initial encounter- Primary documented in this encounter
--- OUTSIDE RECORDS SUMMARY | 2024-11-03 13:58 | XMS_ITS | Clinical Summary ---
Author Organization [facility] [facility] [facility] Address [address] [place] [address] Care Team Providers Care Produce Specialist Name Role Phone Unavailable Primary Care Provider [...] Date Tho rded Speak language other than Pashto at home Not on file 05/31/2023 Want [...] Orientation Not on file Plan of Treatment Health Maintenance Due Date Last Done Comments CT Colonography 1964 Colonoscopy 1964 Colorectal Cancer Screening 1964 FOBT/FIT 1964 Fit-DNA (Cologuard) 1964 Sigmoidoscopy 1964 Depression Screening (12+) 1976 Tobacco Cessation Counseling and Screening (12+) 1976 HIV Screening 02/01/1979 Hepatitis C Screening 02/01/1982 DTAP/TDAP/TD VACCINES (1 - Tdap) 02/01/1983 Pneumococcal 50+ years (1 of 1 - PCV) 02/01/2014 Shingles Vaccine (Zoster) (1 of 2) 02/01/2014 COVID-19 VACCINE (3 - season) 01/12/202403/2021, 08/30/2020 Influenza Vaccine (Season Ended) 2025 02/22/20 20 Lipid Panel 10/07/2028 10/08/2023 Insurance WORK COMP OTHER WORK COMP OTHER WORK COMP OTHER
--- OUTSIDE RECORDS SUMMARY | 2024-11-03 13:58 | XMS_ITS | Encounter Summary ---
Author Organization [employer] [facility] Address [address] [place] [address] Care Team Providers Care Computer Discovery Teacher Name Role Phone Unavailable Primary Care Provider Unavailabl e Encounter Details Date Type Department Care Team (Latest Contact Info) Description 02/28/2022 Hospital Encounter Social History Tobacco Use Types Packs/Day Years [...] Date Tho rded Speak language other than Singaporean at home Not on file 05/31/2023 Want [...] as of this encounter Plan of Treatment Not on file documented as of this encounter Visit Diagnoses Not on filedocumented in this encounter
[2024-11-03 14:02] LABS: Anti-Centromere B Antibodies ND; Anti-DNA (DS) Ab Qn ND; Anti-Jo-1 ND; Antichromatin Antibodies ND; Antiscleroderma-70 Antibodies ND; RNP Antibodies ND; Sjogren's Anti-SS-A ND; Sjogren's Anti-SS-B ND
[2024-11-03 14:57] LABS: C-Reactive Protein 0.4 mg/L (0-4)
[2024-11-04 10:13] LABS: Antinuclear Antibodies (ANA) Negative (Negative)
[2024-11-06 02:09] LABS: Anti-CCP Abs,IgG and IgA (RDL) < 20 Units (<20)
== END 2024-11-03 23:59 | disposition home or self-care (01) ==
LOC: LAB 13:53
PROVIDERS: PCP Internal Medicine Adolescent Medicine; Visit Provider Internal Medicine Pulmonary Disease
DX: J84.9 Interstitial pulmonary disease, unspecified (principal)
CPT/HCPCS: 36415; 86140; 86200

== ENCOUNTER 2024-12-04 07:41 | Outpatient (CLI) | payer MEDICARE, BC, SELFPAY ==
--- OUTSIDE RECORDS SUMMARY | 2024-12-04 07:43 | XMS_ITS | Encounter Summary ---
Author Organization [facility] Address [address] [place] [address] Care Team Providers Care Piercer Name Role Phone Filemon Webster MD Primary Care Provider [phone] Reason for Visit * Reason Onset Date Comments Surgical Clearance 11/23/2024 Encounter Details Date Type Department Care Team (Late st Contact Info) Description 11/23/2024 Telephone [facility] [address] [facility] [address] [place] [address] Kely Rice, FERRYBOAT DECKHAND [address] [facility] [address] [place] [phone] Surgical Clearance Social History Tobacco Use Types Packs/Day Years Used Date Smoking Tobacco: Every Day Cigarettes 0.3 43.6 Started: 1981 Smokeless Tobacco: Never Comments:6 CIGS/DAYS Alcohol Use Standard Drinks/Week Comments No 0 (1 standard drink = 0.6 oz pur e alcohol) AUDIT-C Answer Date Recorded Q1: How often do you have a drink containing alcohol? Never 10/08/2023 Q2: How many drinks containi ng alcohol do you have on a typical day when you are drinking? Patient does not drink Q3: How often do you have si x or more drinks on one occasion? Never 10/08/2023 Abuse Screen Answer Date Recorded Feels Unsafe at Home or Work/School no 10/08/2023 Feels Threatened by Someone no 09/11 Does Anyone Try to Keep You From Having Contact with Others or Doing Things Outside Your Home? no 10/08/2023 Physical Signs of Abuse Present no 10/08/2023 Housing Stability Answer Date Recorded Current Living Arrangements home 09/11 Potentially Unsafe Housing Conditions Not on ernesto e 10/08/2023 Disabilities Answer Date Recorded Difficulty Concentrating, Remembering or Making Decisions no 10/08/2023 Difficulty Managing Errands Independently yes 10/08/2023 Sex and Gender Information Value Date Recorded Sex Assigned at Not on file Legal Sex Male 11:35 AM EST Gender Identity Not on file Sexual Orientation Not on file documented as of this encounter Miscellaneous Notes * Telephone Encounter - Neva Harris RN - 11/24/2024 4:08 PM EDT Letter sent * Telephone Encounter - Elayne Teixeira RN - 11/24/2024 10:01 AM EDT Spoke with the patient. He reports he is feeling much better. No episodes of chest pain. He is aware of hold instructions. Attempted to call the office back but no office or fax number was left on message. The caller left her personal cell phone number but that number was a wrong number. Will awaitreturn call. * Telephone Encounter - Elayne Teixeira RN - 11/24/2024 10:00 AM EDT Per Kely- If he is no longer having chest pain, then ok to hold Plavix for 5 days prior to injection and resume as soon as possible. If he is continuing to have chest pain, Dr. Heller had recommended that we move up his appt and would defer holding the Plavix until seen in the office for further assessment. Thank you. * Telephone Encounter - Elayne Teixeira RN - 11/23/2024 11:[address] Surendra Boateng' office called to report that the patient was in their office today for a spinalinjection but told them he was taking Plavix. They have rescheduled him and asking for a Plavix hold. 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 Plavix was discontinued at last visit09/14/2024 since it was a year post PCI. He called back 10/29/2024 asking to restart because he was having chest pain similar to what he had in the past. Is he okay to proceed with injection holding Plavix 5 days? documented in this encounter Plan of Treatment Upcoming Encounters Date Type Department Care Team (Late st Contact Info) Description 10/11/2025 10:45 AM EDT Office Visit [facility] [address] [facility] [address] [place] [address] Lucio Heller MD [address] [facility] [address] [place] [address] documented as of this encounter Visit Diagnoses Not on filedocumented in this encounter Care Teams Piercer Relationship Specialty Start Date End Date Filemon Webster MD [address] [facility] [address] [place] [address] PCP - General Adolescent Medicine 10/01/18 documented as of this encounter
--- OUTSIDE RECORDS SUMMARY | 2024-12-04 07:43 | XMS_ITS | Encounter Summary ---
Author Organization [employer] ([place], [place], [place], [place]) Address [address] [place] [address] Care Team Providers Care Professor Of Theology Name Role Phone Unavailable Primary Care Provider Unavailabl e Reason for Referral * MRI (Routine) - Closed Specialty Diagnoses / Procedures Referred By Contac t Referred To Contact Radiology Diagnoses Crushing injury of right foot, initial encounter Procedures MRI foot right without contrast Geo Becerril MD [address] [place] [id number] Phone: tel: fax: Referral ID Status Reason Start Date Expiration Date Visits Re quested Visits Authorized [id number] Closed 03/19/2022 09/15/2022 1 1 Encounter Details Date Type Department Care Team (Late st Contact Info) Description 03/19/2022 Outside Orders [facility] Central Scheduling 1 [place] [address] Geo Becerril MD [address] [place] [id number] Crushing injury of right foot, initial encounter [...]
--- OUTSIDE RECORDS SUMMARY | 2024-12-04 07:43 | XMS_ITS | Clinical Summary ---
Author Organization [facility] Address [address] [place] [address] Care Team Providers Care Consumer Loan Underwriter Name Role Phone Unavailable Primary Care Provider Unavailabl e Encounters Date Type Department Care Team Description 11/16/2024 Community Orders [facility] [address] [place] [address] Kermit Cook MD Epidermoid cyst (Primary Dx) from Last 3 Months Social History Tobacco Use Types Packs/Day Years Used Date Smoking Tobacco: Never Assessed Sex and Gender Information Value Date Recorded Sex Assigned at Not on file Legal Sex Male 8:00 AM EDT Gender Identity Not on file Sexual Orientation Not on file Plan of Treatment Upcoming Encounters Date Type Department Care Team (Late st Contact Info) Description 02/18/2025 2:30 PM EDT Consult [facility] [address] [place] [address] Rowdy Rodriguez MD [address] [phone] Health Maintenance Due Date Last Done Comments [facility]-Depression Screening 1964 [facility]-HIV Screening 1964 [facility]-Hepatitis C Screening 1964 [facility]-/Child/Adol SDOH Screenings 1964 [facility]- SDOH Screenings 02/01/1982 [facility]-Adult SDOH Screenings 02/01/1982 [facility]-DTaP,Tdap,and Td Vaccine s (1 - Tdap) 02/01/1983 CT Colonography 02/01/2009 Colonoscopy 02/01/2009 FIT-DNA 02/01/2009 FIT 02/01/2009 FOBT 02/01/2009 Sigmoidoscopy 02/01/2009 [facility]-Colorectal Cancer Screening 02/01/2009 [facility]-Pneumococcal Vaccine: 50 + Years (1 of 1 - PCV) 02/01/2014 [facility]-Zoster Vaccines (1 of 2) 02/01/2014 [id number] Vaccine (3 season) 2024 09/20/2020, 08/30/2020 [facility]-Influenza Vaccine (#1) 01/11/202503/26, 02/22/2020 [facility]-RSV Vaccine: 60+ Years o r (1 - 1-dose 75+ series) 02/01/2039 HPV Vaccines Aged Out No longer eligi ble based on patient's age to complete this topic [facility]-HIB Vaccines Aged Out No longer e ligible based on patient's age to complete this topic [facility]-Hepatitis A Vaccines Aged Out No longer eligible based on patient's age to complete this topic [facility]-IPV Vaccines Aged Out No longer e ligible based on patient's age to complete this topic [facility]-Rotavirus Vaccines Aged Out No lo nger eligible based on patient's age to complete this topic
--- OUTSIDE RECORDS SUMMARY | 2024-12-04 07:43 | XMS_ITS | Encounter Summary ---
Author Organization [facility] Address [address] [place] [address] Care Team Providers Care Protection Agent Name Role Phone Filemon Webster MD Primary Care Provider [phone] Reason for Visit * Reason Comments Med Refill Encounter Details Date Type Department Care Team (Late st Contact Info) Description 10/09/[address] [facility] [address] [facility] [address] [place] [id number] Lucio Heller MD [address] [facility] [address] [place] [address] Med Refill Social History Tobacco Use Types Packs/Day Years [...] as of this encounter Plan of Treatment Upcoming Encounters Date Type Department Care Team (Late st Contact Info) Description 10/11/2025 10:45 AM EDT Office Visit [facility] [address] [facility] [address] [place] [address] Lucio Heller MD [address] [facility] [address] [place] [address] documented as of this encounter Visit Diagnoses Not on filedocumented in this encounter Care Teams Protection Agent Relationship Specialty Start Date End Date Filemon Webster MD [address] [facility] [address] [place] [address] PCP - General Adolescent Medicine 10/01/18 documented as of this encounter
--- OUTSIDE RECORDS SUMMARY | 2024-12-04 07:43 | XMS_ITS | Encounter Summary ---
Author Organization [facility] Address [address] [place] [address] Care Team Providers Care Supervisor Core Drilling Name Role Phone Unavailable Primary Care Provider Unavailabl e Reason for Referral * Consultation (Routine) - Authorized Specialty Diagnoses / Procedures Referred By Contac t Referred To Contact Plastic Surgery Diagnoses Epidermoid cyst Kermit Cook MD [address] [place] [address] Phone: tel: fax: Referral ID Status Reason Start Date Expiration Date Visits Requested Visits Authorized [id number] Authorized Specialty Services Required 11/16/2024 05/18/2026 1 1 Encounter Details Date Type Department Care Team (Late st Contact Info) Description 11/16/2024 Community Orders [facility] [address] [place] [address] Kermit Cook MD [address] [place] [id number] Epidermoid cyst (Primary Dx) Social History Tobacco Use Types [...] Info) Description 02/18/2025 2:30 PM EDT Consult [facility] [address] [place] [phone] Rowdy Rodriguez MD [address] [address] Scheduled Referrals Name Type Priority Associated Diagnoses Order Schedule Ambulatory Referral to Plastic Surgery Outpatient Referral Routine Epidermoid cyst Expected: 11/16/2024 (Approximate), Expires: 05/19/2026 documented as of this encounter Visit Diagnoses Diagnosis Epidermoid cyst- Primary Sebaceous cyst documented in this encounter
--- OUTSIDE RECORDS SUMMARY | 2024-12-04 07:43 | XMS_ITS | Clinical Summary ---
Author Organization [facility] Address [address] [place] [address] Care Team Providers Care Tuck Pointer Helper Name Role Phone Filemon Webster MD Primary Care Provider [phone] Allergies No known active allergies Medications aspirin 81 MG EC tablet Take 1 tablet by mouth Daily. Active atorvastatin (LIPITOR) 40 MG tablet Take 1 tablet by mouth Every Night. Active carvedilol (COREG) 6.25 MG tablet Take 1 tablet by mouth 2 (Two) Times a Day With Meals. Active diazePAM (VALIUM) 10 MG tablet Take 2 tablets by mouth every night at bedtime. Active escitalopram (LEXAPRO) 20 MG tablet 08/15/2023 Active gabapentin (NEURONTIN) 600 MG tablet 08/08/2023 Active HYDROcodone-jaydon taminophen (NORCO) 7.5-325 MG per tablet 08/08/2023 Activ e losartan (COZAAR) 100 MG tablet 08/15/2023 Active levothyroxine (SYNTHROID, LEVOTHROID) 112 MCG tablet 08/15/2023 Active nitroglycerin (NITROSTAT) 0.4 MG SL tablet 1 under the tongue as needed for angina, may repeat q5mins for up three doses 25 tablet 11/01/2023 Active famotidine (PEPCID) 40 MG tablet 1 tablet As Needed. 10/10/2023 Active clopidogrel (PLAVIX) 75 MG tablet Take 1 tablet by mouth Daily. 90 tablet 3 10/29/2024 Active Active Problems Problem Noted Date Diagnosed Date Abnormal stress test 10/01/2023 Diastolic dysfunction 10/01/2023 Coronary artery disease invo lving rappahannock coronary artery of rappahannock heart without angina pectoris 09/23/2018 Essential hypertension 09/23/2018 Tobacco dependence 09/23/2018 Mixed hyperlipidemia 09/23/2018 GERD with presumed esophagitis 09/23/2018 Resolved Problems Problem Noted Date Diagnosed Date Resolved Date Chest pain 09/22/2018 09/23/2018 Encounters Date Type Department Care Team Description 11/23/2024 Telephone [facility] [address] [facility] [address] [place] [address] Kely Rice APRN Surgical Clearance 10/29/2024 Telephone [facility] [address] [facility] [address] [place] [address]SHIH- MEDICATION CONCERN 10/09/2024 Refill [facility] [address] [facility] [address] [place] [address] Lucio Heller MD Med Refill 10/02/2024 Refill [facility] [address] [facility] [address] [place] [address] Lucio Heller MD Med Refill 10/01/2024 Refill [facility] [address] [facility] [address] [place] [address] Lucio Heller MD Med Refill 09/14/2024 10:15 AM EDT Office Visit [facility] [address] [facility] [address] [place] [address] Kely Rice, MATTING PRESS TENDER Coronary artery disease involving rappahannock coronary artery of rappahannock heart without angina pectoris (Primary Dx); Essential hypertension; Mixed hyperlipidemia 09/14/2024 Travel from Last 3 Months Family History Medical History Relation Name Comments Heart disease Father No Known Problems Mother Relation Name Status Comments Father Mother Alive Social History Tobacco Use Types Packs/Day Years [...] on file Sexual Orientation Not on file Last Filed Vital Signs Vital Sign Reading Time Taken Comments Blood Pressure 116/52 09/14/2024 10:11 AM EDT Pulse 55 09/14/2024 10:11 AM EDT Temperature 35.9 C (96.6 F) 10/08/2023 7:16 AM EDT Respiratory Rate 20 10/08/2023 11:04 AM EDT Oxygen Saturation 98% 09/14/2024 10:11 AM EDT Inhaled Oxygen Concentration - - Weight 77.8 kg (171 lb 9.6 oz) 09/14/2024 10:11 AM EDT Height 172.7 cm (5' 8 ) 09/14/2024 10:11 AM EDT Body Mass Index 26.09 09/14/2024 10:11 AM EDT Plan of Treatment Upcoming Encounters Date Type Department Care Team (Late st Contact Info) Description 10/11/2025 10:45 AM EDT Office Visit [facility] [address] [place] [address] Lucio Heller MD [address] [place] [address] Health Maintenance Due Date Last Done Comments Pneumococcal Vaccine 50+ (1 of 2 - PCV) 02/01/1983 TDAP/TD VACCINES (1 - Tdap) 02/01/1983 COLON CANCER SCREENING 5 YEA R SIGMOIDOSCOPY 02/01/2009 COLONOSCOPY 02/01/2009 CT COLONOGRAPHY 02/01/2009 FECAL OCCULT BLOOD TEST 02/01/2009 FIT Testing (1 year) 02/01/2009 ZOSTER VACCINE (1 of 2) 02/01/2014 ANNUAL PHYSICAL 10/07/2018 HEPATITIS C SCREENING 10/07/2018 COVID-19 Vaccine ( season) 01/12/202403/2021, 08/30/2020 LIPID PANEL 10/07/2024 10/08/2023 INFLUENZA VACCINE 02/10/2025 03/26/2022, 02/22/2020 COLOGUARD 01/18/2027 01/19/2024, 10/03/2020 COLORECTAL CANCER SCREENING 01/18/2027 Medical Devices Implanted Type Area Building Cleaner Device Identifier Shelf Expiration Date Model / Serial / Lot Stnt Cornry Rx Xience/Skypoi nt Rapdxng [id number] - [id number] Implanted:Qty : 1 on 10/08/2023 by Lucio Heller MD at [facility] N/A: Coronary [employer] [id number] / / [id number] Procedures Procedure Name Priority Date/Time Associated Diagnosis Comments ECG 12-LEAD Routine 09/14/2024 Coronary artery disease involving rappahannock coronary artery of rappahannock heart without angina pectoris LIPID PANEL STAT 10/08/2023 7:26 AM EDT from Last 3 Months or Most Recently Relevant to Health Maintenance Results * ECG 12-LEAD (09/14/2024) Narrative 09/14/2024 Kely Rice APRN 09/14/2024 10:37 AM ECG 12 Lead Date/Time: 09/14/2024 10:22 AM Performed by: Kely Rice APRN Authorized by: Kely Rice APRN Comparison: compared with previous ECG from 11/05/2023 Similar to previous ECG Rhythm: sinus bradycardia Rate: bradycardic Procedure Note Kely Rice APRN - 09/14/2024 10:15 AM EDT Images from the original note were not included. [facility] Cardiology [address] [place] [address], [address] [place], [place], [facility] WWW.[facility] HOSPITALcloudswaveSULL[facility] FOLLOW UP NOTE Patient care team: Patient Care Team: Filemon Webster MD as PCP - General (Adolescent Medicine) Lucio Heller MD as Consulting Physician (Cardiology) Kely Rice APRN as Nurse Practitioner (Cardiology) Subjective: Chief complaint: Chief Complaint Patient presents with Coronary artery disease involving rappahannock coronary artery of Arsh Sharma is a 59 y.o. male. Cardiac focused problem list: CAD Status post CABG x 2 (free FILI to distal LAD at the apex, SVG to mid LAD)Dr. Griffith at [facility], 2015. Stress test, 09/23/2018: Small to medium sized infarct located in thelateral wall and septal wall with no significant ischemia. Echocardiogram 09/23/2018: LVEF 58%. RV mildly dilated. Small LV cavity.Grade I diastolic dysfunction. Moderate MAC. Echocardiogram 09/27/2023: LVEF 54%. Mild LVH. Grade II diastolicdysfunction. No significant valvular abnormalities. Stress test, 09/27/2023: Small to moderate sized, mild to moderatelysevere areas of ischemia located in the lateral wall and septal wall.Normal EF 635 with septal hypokinesis. 3 vessel coronary calcificationsare seen on CT. Intermediate risk study. [facility], 10/08/2023: 90% mid circumflex stenosis status post BRENDON x 1. Occludedmid LAD. Patent SVG to mid LAD, patent Y graft from the SVG with a freeRIMA to the distal LAD. Normal cardiac index of 2.73 L/min/m2. Mildlyelevated mean PA pressure of 16 mmHg, mildly elevated PCWP of 16 mmHg,mildly elevated LVEDP of 17 mmHg. Negative cardiac shunt run. Hypertension Hyperlipidemia Hypothyroidism GERD Tobacco dependence Traumatic right foot fracture, 2021 Difficulty with walking COPD CT 05/2023: Persistent groundglass opacities, scarring of the right lung,calcified granuloma of the right lower lobe HPI: Patient presents today for follow up. Stable from a cardiac standpointsince his last visit. Denies chest pain, shortness of breath, orpalpitations. Blood pressure at goal. Review of Systems: As noted above in the HPI PFSH: Patient Active Problem List Diagnosis Coronary artery disease involving rappahannock coronary artery of rappahannock heartwithout angina pectoris Essential hypertension Tobacco dependence Mixed hyperlipidemia GERD with presumed esophagitis Abnormal stress test Diastolic dysfunction Current Outpatient Medications: aspirin 81 MG EC tablet, Take 1 tablet by mouth Daily., Disp: , Rfl: atorvastatin (LIPITOR) 40 MG tablet, Take 1 tablet by mouth EveryNight., Disp: , Rfl: carvedilol (COREG) 6.25 MG tablet, Take 1 tablet by mouth 2 (Two) Timesa Day With Meals., Disp: , Rfl: diazePAM (VALIUM) 10 MG tablet, Take 2 tablets by mouth every night atbedtime., Disp: , Rfl: escitalopram (LEXAPRO) 20 MG tablet, , Disp: , Rfl: famotidine (PEPCID) 40 MG tablet, 1 tablet As Needed., Disp: , Rfl: gabapentin (NEURONTIN) 600 MG tablet, , Disp: , Rfl: HYDROcodone-acetaminophen (NORCO) 7.5-325 MG per tablet, , Disp: , Rfl: levothyroxine (SYNTHROID, LEVOTHROID) 112 MCG tablet, , Disp: , Rfl: losartan (COZAAR) 100 MG tablet, , Disp: , Rfl: nitroglycerin (NITROSTAT) 0.4 MG SL tablet, 1 under the tongue as neededfor angina, may repeat q5mins for up three doses, Disp: 25 tablet, Rfl:0 No Known Allergies Social History Socioeconomic History Marital status: Tobacco Use Smoking status: Every Day Current packs/day: 0.25 Average packs/day: 0.3 packs/day for 43.3 years (10.8 ttl pk-yrs) Types: Cigarettes Start date: 1981 Smokeless tobacco: Never Tobacco comments: 6 CIGS/DAYS Vaping Use Vaping status: Never Used Substance and Sexual Activity Alcohol use: No Drug use: No Sexual activity: Defer Family History Problem Relation Age of Onset No Known Problems Mother Heart disease Father Objective: Physical Exam: BP 116/52 (BP Location: Left arm, Patient Position: Sitting, Cuff Size:Adult) Pulse 55 Ht 172.7 cm (68 ) Wt 77.8 kg (171 lb 9.6 oz) SpO2 98% BMI 26.09 kg/m CONSTITUTIONAL: No acute distress RESPIRATORY: Normal effort. Clear to auscultation bilaterally withoutwheezing or rales CARDIOVASCULAR: Regular rate and rhythm with normal S1 and S2. Withoutmurmur. PERIPHERAL VASCULAR: No carotid bruit bilaterally. Normal radial pulse.There is no lower extremity edema bilaterally. Labs: Labs reviewed by myself Lab Results Component Value Date CHOL 101 10/08/2023 Lab Results Component Value Date TRIG 116 10/08/2023 Lab Results Component Value Date HDL 33 (L) 10/08/2023 Lab Results Component Value Date LDL 47 10/08/2023 No components found for: LDLDIRECTC PCP labs, 07/11/2023 Lipid panel: TC 110, TG 116, HDL 33, LDL 57 CMP: Glu 96, BUN 14, creatinine 0.90, Na 138, K 4.5, AST 15, ALT 17 CBC: WBC 8.5, Hgb 15.9, Hct 46.8, plt 230 Hemoglobin A1c: 5.3 TSH 2.77 Diagnostic Data: ECG 12 Lead Date/Time: 09/14/2024 10:22 AM Performed by: Kely Rice APRN Authorized by: Kely Rice APRN Comparison: compared with previousECG from 11/05/2023 Similar to previous ECG Rhythm: sinus bradycardia Rate: bradycardic Results for orders placed during the hospital encounter of 09/27/23 Adult Transthoracic Echo Complete w/ Color, Spectral and Contrast ifnecessary per protocol Interpretation Summary Left ventricular systolic function is normal. Calculated leftventricular EF of 54% Left ventricular wall thickness is consistent with mild concentrichypertrophy. Left ventricular diastolic function is consistent with (grade II w/highLAP) pseudonormalization. Normal right ventricular size and systolic function No significant valvular abnormalities No pericardial effusion Compared to prior echocardiogram, there is no significant change Assessment and Plan: Coronary artery disease of rappahannock artery of rappahannock heart with stableangina pectoris Tobacco use Dyspnea on exertion Essential hypertension Mixed hyperlipidemia COPD -Status post BRENDON x 1 to 90% stenosis of mid circumflex 09/2023. -Currently without angina. Stable EKG today. -Discontinue Plavix at this time, one year post PCI. -Continue aspirin, statin, beta jami, losartan. -Continue heart healthy diet and weight loss journey -Down to 6 cigarettes a day. Encouraged continued efforts towards smokingcessation. -Increased activity as tolerated in the setting of his chronic footinjury - Return in about 1 year (around 09/14/2025) for Next scheduled follow upwith Dr. Heller, EKG . Electronically signed by Kely Rice APRN, 09/14/24, 10:36 AM EDT. Kely Rice APRN ECG ORDERABLES Final Result * (ABNORMAL) Lipid Panel (10/08/2023 7:26 AM EDT) Total Cholesterol 101 0 - 200 mg/dL 10/08/2023 7:55 AM EDT [facility] Triglycerides 116 0 - 150 mg/dL 10/08/2023 7:55 AM EDT [facility] HDL Cholesterol 33(L) 40 - 60 mg/dL 10/08/2023 7:55 AM EDT [facility] LDL Cholesterol 47 0 - 100 mg/dL 10/08/2023 7:55 AM EDT [facility] VLDL Cholesterol 21 5 - 40 mg/dL 10/08/2023 7:55 AM EDT [facility] LDL/HDL Ratio 1.36 10/08/2023 7:55 AM EDT [facility] Blood Line / Unknown 10/08/2023 7: 26 AM EDT 10/08/2023 7:30 AM EDT [facility] - 10/08/2023 7:55 AM EDT Cholesterol Reference Ranges (U.S. Department of Health and Human Services ATP III Classifications) Desirable <200 mg/dL Borderline High 200-239 mg/dL High Risk >240 mg/dL Triglyceride Reference Ranges (U.S. Department of Health and Human Services ATP III Classifications) Normal <150 mg/dL Borderline High 150-199 mg/dL High 200-499 mg/dL Very High >500 mg/dL HDL Reference Ranges (U.S. Department of Health and Human Services ATP III Classifications) Low <40 mg/dl (major risk factor for CHD) High >60 mg/dl ('negative' risk factor for CHD) LDL Reference Ranges (U.S. Department of Health and Human Services ATP III Classifications) Optimal <100 mg/dL Near Optimal 100-129 mg/dL Borderline High 130-159 mg/dL High 160-189 mg/dL Very High >189 mg/dL Kely Rice MATTING PRESS TENDER LAB BLOOD ORDERABLES Final R esult [facility]
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 LIVING WILL - SCAN 10/08/2023 12:42 PM GLORIA REY, 02/25/2019 * CPR (Attempt to Resuscitate) (Latest Code Status on File) Date Activated Date Inactivated Comments 10/08/2023 12:28 PM 10/08/2023 6:11 PM Question Answer Comments Code Status (Patient has no pulse and is not breathing): CPR (Attempt to Resuscitate) Medical Interventions (Patie nt has pulse or is breathing): Full Support * CPR (Attempt to Resuscitate) Date Activated Date Inactivated Comments 09/23/2018 2:54 AM 09/23/2018 5:44 PM Question Answer Comments Code Status (Patient has no pulse and is not breathing): CPR (Attempt to Resuscitate) Medical Interventions (Patie nt has pulse or is breathing): Full Level Of Support Discussed With: Patient Care Teams Tuck Pointer Helper Relationship Specialty Start Date End Date Filemon Webster MD [address] [facility] [address] [place] [address] PCP - General Adolescent Medicine 10/01/18
--- OUTSIDE RECORDS SUMMARY | 2024-12-04 07:43 | XMS_ITS | Encounter Summary ---
Author Organization [facility] Address [address] [place] [address] Care Team Providers Care Feather Baler Name Role Phone Filemon Webster MD Primary Care Provider [phone] Reason for Visit * Reason Onset Date Comments - MEDICATION CONCERN 10/29/2024 Encounter Details Date Type Department Care Team (Late st Contact Info) Description 10/29/2024 Telephone [facility] [address] [facility] [address] [place] [address] Lucio Heller MD [address] [facility] [address] [place] [address] - MEDICATION CONCERN Social History Tobacco Use Types Packs/Day Years [...] encounter Miscellaneous Notes * Telephone Encounter - Natty Olvera RN - 10/29/2024 2:05 PM EDT Pt notified. Pt agreeable to restart Plavix and continue to monitor. * Telephone Encounter - Natty Olvera RN - 10/29/2024 11:00 AM EDT Pt reports he has been having chest pain on and off for the last month since he stopped his Plavix.Pt denies the pain is similar to pain he experienced prior to the heart cath. Pt denies taking blood pressure regularly. Pt BP at appointment was 116/52. Pt denies activity making the chest pain worse. Pt reports he does get numbness up his right arm with the pain. He reports the pain is predominant ly on his right side. Pt reports SOB in general. Please advise. * Telephone Encounter - Kiana Schultz RegSched Rep - 10/29/2024 8:43 AM EDT Caller: Arsh Sharma Relationship: Self Best call back number: [phone] Which medication are you concerned about: CLOPIDOGREL BISULFATE 75 MG Who prescribed you this medication: DR. HELLER When did you start taking this medication: ABOUT A YEAR AGO What are your concerns: PT STOPPED TAKING THIS MEDICATION ABOUT A MONTH AGO, AND SINCE THEN HE HAS NOT FELT GREAT. HE SAID HE JUST FEELS A LITTLE OFF IN HIS CHEST, AND IN GENERAL. THIS HAS BEEN GOINGON SINCE HE STOPPED TAKING THE MEDICATION. HE FEELS IF IT IS RELATED. PLEASE REACH OUT TO ADVISETHE PT. How long have you had these concerns: ABOUT A MONTH documented in this encounter Plan of Treatment Upcoming Encounters Date Type Department Care Team (Late st Contact Info) Description 10/11/2025 10:45 AM EDT Office Visit [facility] [address] [place] [address] Lucio Heller MD [address] [place] [address] documented as of this encounter Visit Diagnoses Not on filedocumented in this encounter Care Teams Feather Baler Relationship Specialty Start Date End Date Filemon Webster MD [address] [facility] [address] [place] [address] PCP - General Adolescent Medicine 10/01/18 documented as of this encounter
--- OUTSIDE RECORDS SUMMARY | 2024-12-04 07:43 | XMS_ITS | Clinical Summary ---
Author Organization [employer] ([place], [place], [place], [place]) Address [address] [place] [address] Care Team Providers Care Director Information Security Name Role Phone Unavailable Primary Care Provider Unavailabl e Social History Tobacco Use Types Packs/Day Years Used Date Smoking Tobacco: Never Assessed Food Insecurity Answer Date Recorded Food run [...] Date Tho rded Speak language other than Liberian at home Not on file 05/31/2023 Want help with school or training Not on file 05/31/2023 Substance Use Answer Date Recorded Used [...] (3 - season) 01/12/202403/2021, 08/30/2020 Influenza Vaccine (#1) 2025 02/22/2020 Lipid Panel 10/07/2028 10/08/2023 Insurance WORK COMP OTHER WORK COMP OTHER Member Subscriber Plan / Payer (Ef fective 2022-Present) Name:Arsh Sharma Relation to Subscriber:Employee Name:[employer] Date of :1901 (Home) Address: [address] [place], [place] [id number] Payer ID:Not on file Type:Not on file Address: [place] [id number] WORK COMP OTHER
--- OUTSIDE RECORDS SUMMARY | 2024-12-04 07:43 | XMS_ITS | Encounter Summary ---
Author Organization [employer] ([place], [place], [place], [place]) Address [address] [place] [address] Care Team Providers Care Pelt Salter Name Role Phone Unavailable Primary Care Provider [...] Date Tho rded Speak language other than Bulgarian at home Not on file 05/31/2023 Want [...]
--- OUTSIDE RECORDS SUMMARY | 2024-12-04 07:43 | XMS_ITS | Encounter Summary ---
Author Organization [employer] ([place], [place], [place], [place]) Address [address] [place] [address] Care Team Providers Care Insurance Sales Professional Name Role Phone Unavailable Primary Care Provider Unavailabl e Reason for Referral * Consultation (Routine) - Closed Specialty Diagnoses / Procedures Referred By Contandre t Referred To Contact Diagnoses Chronic pain syndrome Surendra Boateng MD [address] [address] [place] [address] Phone: tel: fax: Chyna Santoyo, [place] [address] [place] [address] Phone: tel: fax: Referral ID Status Reason Start Date Expiration Date V isits Requested Visits Authorized [id number] Closed Specialty Services Required 03/21/2023 09/17/2023 1 1 Encounter Details Date Type Department Care Team (Late st Contact Info) Description 03/21/2023 Outside Orders [facility] Central Scheduling [address] [place] [address] Surendra Boateng MD [address] [address] [place] [address] Chronic pain syndrome (Primary Dx) Social History [...] Date Tho rded Speak language other than Bhutanese at home Not on file 05/31/2023 Want [...]
--- OUTSIDE RECORDS SUMMARY | 2024-12-04 07:43 | XMS_ITS | Referral Summary ---
Author Organization [employer] ([place], [place], [place], [place]) Address [address] [place] [address] Care Team Providers Care Bus Matron Name Role Phone Unavailable Primary Care Provider [...] Date Tho rded Speak language other than Fijian at home Not on file 05/31/2023 Want [...]
[2024-12-04] MEDS: ALBUTEROL 0.083% 2.5 MG/3 ML NEB IH (08:36)
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
== END 2024-12-04 23:59 | disposition home or self-care (01) ==
LOC: RT 07:42
PROVIDERS: PCP Internal Medicine Adolescent Medicine; Visit Provider Internal Medicine Pulmonary Disease
DX: R06.02 Shortness of breath (principal)
CPT/HCPCS: 94060; 94726; 94729